=== PATIENT | female | born 1950 | race Caucasian/White ===

== ENCOUNTER 2021-02-02 08:09 | Outpatient (REF) | payer BC, SELFPAY ==
--- NOTE | ~2021-02-02 | MM_ITS ---
EXAMINATION: MM SCREENING DIGITAL BREAST TOMOSYNTHESIS, BILATERAL CLINICAL INFORMATION: Screening. Asymptomatic. The lifetime risk of breast cancer based on the Tyrer-Cuzick Model is 4%. COMPARISON: Mammography: 01/07/2019, 03/30/2015 TECHNIQUE: Digital breast tomosynthesis is performed in both the craniocaudal and mediolateral oblique views along with computer-aided detection (CAD). Synthesized 2D images are generated from the tomosynthesis. FINDINGS: There are scattered areas of fibroglandular density (ACR BI-RADS breast composition Category b). There are no significant masses, abnormal calcifications, or other abnormalities. Small intramammary node again demonstrated posterior 8:00 left breast. The axilla and skin contours are unremarkable. MM/MM tomosynthesis screening BI IMPRESSION: No mammographic evidence of malignancy. ASSESSMENT: BI-RADS 2: Benign RECOMMENDATION: Routine annual mammography screening. This patient's information was entered into a reminder system with a target due date for their next mammogram.
--- NOTE | ~2021-02-02 | MM_ITS ---
EXAMINATION: BONE DENSITOMETRY CLINICAL INDICATION: Other specified disorders of bone density and structure. COMPARISON: Previous BD dated 01/07/2019 and baseline BD dated 01/01/2008. TECHNIQUE: Using a [employer] DXA System (software version: 13.1) manufactured by [employer], dual-energy x-ray absorptiometry was performed of the lumbar spine and left hip. The images are of good technical quality. Summary results are attached. FINDINGS: AP SPINE L1-L4: Current: BMD 1.046 g/cm2, Z-score -0.5, T-score -1.1, osteopenia, 2.2% increase from previous, 3.8% decrease from baseline (<5% change is not significant). Prior: BMD 1.023 g/cm2. Baseline: BMD 1.087 g/cm2. LEFT FEMUR, NECK: Current: BMD 0.747 g/cm2, Z-score -1.1, T-score -2.1, osteopenia. Prior: BMD 0.800 g/cm2. Baseline: BMD 0.850 g/cm2. LEFT FEMUR, TOTAL: Current: BMD 0.762 g/cm2, Z-score -1.3, T-score -2.0, osteopenia, 4.3% decrease from previous, 13.0% decrease from baseline (<5% change is not significant). Prior: BMD 0.796 g/cm2. Baseline: BMD 0.876 g/cm2. IDENTIFIED RISK FACTORS: Height loss, menopause. HISTORY OF FRACTURE: None listed. MEDICATIONS: Calcium supplements or multivitamin, vitamin D. MM/XR DEXA axial skeleton IMPRESSION: 1. DIAGNOSIS: Osteopenia based on the lowest T-score value of -2.1 in the femoral neck applying World Health Organization criteria. 2. 10-YEAR FRACTURE RISK PREDICTION, FRAX: Major osteoporotic fracture (clinical spine, forearm, hip or shoulder) 11.0%. Hip fracture 1.9%. 3. Treatment Recommendations: NOF guidelines recommend consideration for treatment in postmenopausal women and men age 50 and older presenting with the following: -A hip or vertebral (clinical or morphometric) fracture. -T-score less than or equal to -2.5 at the femoral neck or spine after appropriate evaluation to exclude secondary causes. -Low bone mass at the hip or spine and a 10-year fracture probability by FRAX of greater than or equal to 3% for hip fracture or greater than or equal to 20% for major osteoporotic fracture based on the [place] adapted WHO algorithm. 4. Other Recommendations: All treatment decisions require clinical judgment and consideration of individual patient factors, including patient preferences, comorbidities, previous drug use, risk factors not captured in the FRAX model (e.g. frailty, falls, vitamin D deficiency, increased bone turnover, interval significant decline in bone density) and possible under or overestimation of fracture risk by FRAX. Additional medical evaluation for secondary cause of low bone mineral density may be appropriate. FUTURE SCAN RECOMMENDATION: People with diagnosed cases of osteoporosis or at high risk for fracture should have regular bone mineral density tests. For patients eligible for Medicare, routine testing is allowed once every 2 years. The testing frequency can be increased to one year for patients who have rapidly progressing disease, those who are receiving or discontinuing medical therapy to restore bone mass, or have additional risk factors.
== END 2021-02-02 08:10 | disposition home or self-care (01) ==
LOC: HO.MAMMO 08:09
PROVIDERS: Visit Provider Nurse Practitioner Family
DX: Z12.31 Encounter for screening mammogram for malignant neoplasm of breast (principal); Z13.820 Encounter for screening for osteoporosis; M85.80 Other specified disorders of bone density and structure, unspecified site; Z78.0 Asymptomatic menopausal state; Z79.899 Other long term (current) drug therapy
CPT/HCPCS: 77063; 77067; 77080

== ENCOUNTER 2021-02-14 08:59 | Day surgery (SDC) | payer BC, SELFPAY ==
[2021-02-08 10:57] VITALS: BMI 36.9
--- NOTE | 2021-02-09 12:14 | HO.ANESPROP2 ---
HPI - Anesthesia Eval Consult details Narrative: 70yo F for Colonoscopy PMFSH Active Problems Active Problems: All Active Problems (Updated 02/08/21 @ 11:06 by Rody Gupta) Screening for breast cancer (Acute) Screening for colon cancer (Acute) Physical exam (Acute) Cerumen impaction (Acute) Osteopenia (Acute) Past Medical History Medical History (Updated 02/08/21 @ 11:06 by Rody Gupta) Asthma COVID-19 vaccine administered Depression Elevated cholesterol History of urinary urgency HTN (hypertension) Hx of cardiac murmur Surgical History Surgical History H/O colonoscopy History of pubovaginal sling Hx of dilation and curettage Hx of tubal ligation Social History Social History Household Members: Family Housing: House Are you a primary primary care md to a significant other at home: No Do you presently have visiting nurse or other home services: No Patient Tobacco Use Status: Never used Tobacco Use of substances other than those prescribed or required for medical reasons: No Have you been hit, kicked, punched, or otherwise hurt by someone within the past year? If so, by whom?: No Are you DNR?: No Advance Directives Information Provided: No Recently lost weight without trying: No Eating poorly because of decreased appetite: No Nutrition Risks: No Nutritional Risk Poor oral hygiene: No (has one broken crown) Meds Allergies Allergy/AdvReac Type Severity Reaction Status Date / Time atorvastatin [ATORVASTATIN] AdvReac Intermediate myalgias / Verified 02/14/21 09:24 cough Exam Exam Date and Time: February 09, 2021 1214 Height,Weight and Vital Signs: Height 5 ft 3.5 in Weight 96.162 kg Narrative Narrative: echo 2018-mild mitral regurgitation-trace aortic & tricuspid regurgitation-no aortic valve stenosis Assessment and Plan Assessment Anesthesia Assessment: Chart Reviewed
[2021-02-14 09:13] VITALS: BP 152/65; PULSE 91; RESP 16; TEMP 36.3; O2SAT 96
--- NOTE | 2021-02-14 09:13 | HO.ANESPROP2 ---
[facility] Active Problems Active Problems: All Active Problems (Updated 02/08/21 @ 11:06 by Rody Gupta) Screening for breast cancer (Acute) Screening for colon cancer (Acute) Physical exam (Acute) Cerumen impaction (Acute) Osteopenia (Acute) Past Medical History Medical History (Updated 02/08/21 @ 11:06 by Rody Gupta) Asthma COVID-19 vaccine administered Depression Elevated cholesterol History of urinary urgency HTN (hypertension) Hx of cardiac murmur Surgical History Surgical History H/O colonoscopy History of pubovaginal sling Hx of dilation and curettage Hx of tubal ligation Social History Social History Household Members: Family Housing: House Are you a primary rn progressive care unit to a significant other at home: No Do you presently have visiting nurse or other home services: No Patient Tobacco Use Status: Never used Tobacco Use of substances other than those prescribed or required for medical reasons: No Have you been hit, kicked, punched, or otherwise hurt by someone within the past year? If so, by whom?: No Are you DNR?: No Advance Directives Information Provided: No Recently lost weight without trying: No Eating poorly because of decreased appetite: No Nutrition Risks: No Nutritional Risk Poor oral hygiene: No (has one broken crown) Meds Allergies Allergy/AdvReac Type Severity Reaction Status Date / Time atorvastatin [ATORVASTATIN] AdvReac Intermediate myalgias / Unverified 02/07/21 13:29 cough Active Medications: Current Medications Generic Name Dose Route Start Last Admin Trade Name Freq PRN Reason Stop Dose Admin Albuterol Sulfate 2.5 mg 02/14/21 09:12 Albuterol Sulfate (0.083%) 2.5 Mg/3 Ml Vial.Neb INHALE ONCE PRN Shortness of Breath/Wheezing Lactated Ringer's 1,000 mls @ 100 mls/hr 02/14/21 09:15 Lr IVCONT .Q10H SANTA Exam Exam Date and Time: February 14, 2021 0913 Height,Weight and Vital Signs: Height 5 ft 3.5 in Weight 96.162 kg Airway Mallampati Class: III TM Dist: >3cm Neck ROM: Full Heart: RRR Lungs: CYA
--- NOTE | 2021-02-14 09:14 | MHC.SHP ---
Pre-Procedural Eval Section A The patient is an INPATIENT: No The History & Physical has been completed within 30 days and I have reviewed it.: No Section B Chief Complaint: screening Allergies: Allergies Allergy/AdvReac Type Severity Reaction Status Date / Time atorvastatin [ATORVASTATIN] AdvReac Intermediate myalgias / Unverified 02/07/21 13:29 cough Plan I have reviewed the history and physical and performed a pertinent physical examination on my patient. No changes have occurred unless specified.
[2021-02-14] MEDS: Lactated Ringers 1,000 ML 100 ML IVCONT (09:25)
[2021-02-14 09:54] VITALS: BP 115/52; PULSE 86; RESP 16; TEMP 36.8; O2SAT 95
--- NOTE | 2021-02-14 09:55 | PM.OP ---
Brief Operative Note Date of Service: 02/14/21 Pre-op diagnosis: screening Post-op diagnosis: same (colon polyps) Procedure: colonoscopy Surgeon: Deion Leal Anesthesia: MAC Was an Flying Instructor used for this Procedure?: No Estimated blood loss (mL): 5 Pathology: other (polyps x2) Condition: stable Disposition: PACU
[2021-02-14 10:09] VITALS: BP 143/70; PULSE 85; RESP 18; TEMP 36.8; O2SAT 96
--- NOTE | 2021-02-14 20:39 | OP_ITS ---
SURGEON: Deion Leal MD INDICATIONS: Personal history of tubular adenomas and family history of colon cancer. PREOPERATIVE DIAGNOSIS: POSTOPERATIVE DIAGNOSIS: PROCEDURE PERFORMED: Colonoscopy to the terminal ileum with biopsy. ESTIMATED BLOOD LOSS: COMPLICATIONS: ANESTHESIA: ASSISTANTS: SPECIMENS: MEDICATIONS: Monitored anesthesia care. DESCRIPTION OF PROCEDURE: History and physical performed. The risks and benefits of the procedure were explained to the patient. Informed consent was obtained. The patient was placed in the left lateral decubitus position. A digital rectal exam was performed and was found to be normal. The Olympus pediatric video colonoscope was introduced into the rectum and advanced to the cecum without difficulty. The cecum was identified by transillumination, palpation, and identification of ileocecal valve. Examination was performed and the scope was removed. She tolerated the procedure well and was taken to recovery area in stable condition. FINDINGS: The terminal ileum was examined and appeared normal. The visualized colonic mucosa was normal. Two less than 5 mm polyps were removed, one was located in the cecum and the second was located at the ileocecal valve. No other polyps were identified. The quality of the prep was good. There was mild sigmoid diverticulosis. Retroflexed examination showed small internal hemorrhoids. IMPRESSION: Colon polyps. RECOMMENDATION: Follow up the biopsy results. MD GM Rock/ZACHL / [id number]
== END 2021-02-14 10:42 | disposition home or self-care (01) ==
PROVIDERS: PCP Nurse Practitioner Family; Visit Provider Internal Medicine Gastroenterology
PROC: 0DJD8ZZ Inspection of Lower Intestinal Tract, Via Natural or Artificial Opening Endoscopic (ICD-10-PCS; CPT 45378; principal; 2021-02-14 09:50)
DX: Z12.11 Encounter for screening for malignant neoplasm of colon (principal); Z80.0 Family history of malignant neoplasm of digestive organs; Z86.010 Personal history of colon polyps; D12.0 Benign neoplasm of cecum; K57.30 Diverticulosis of large intestine without perforation or abscess without bleeding; K64.8 Other hemorrhoids; I10 Essential (primary) hypertension; J45.909 Unspecified asthma, uncomplicated; Z79.899 Other long term (current) drug therapy; Z88.8 Allergy status to other drugs, medicaments and biological substances
CPT/HCPCS: 45380; 88305

== ENCOUNTER 2021-03-22 08:33 | Outpatient (REF) | payer BC, SELFPAY ==
[2021-03-22 11:25] LABS: MANUAL DIFF FLAG NO
[2021-03-22 12:04] LABS: Basophils Absolute Auto 0.1 X10*3/uL (0.0-0.2); Basophils Percent Auto 1.7 % (0-2); Eosinophils Absolute Auto 0.1 X10*3/uL (0.0-0.4); Eosinophils Percent Auto 2.4 % (0-4); Hematocrit 40.6 % (37-47); Hemoglobin 13.1 g/dl (12.0-16.0); Imm Gran Abs Auto 0.01 X10*3/uL (0.00-0.03); Imm Gran Pct Auto 0.2 % (0.0-0.4); Lymphocytes Absolute Auto 1.7 X10*3/uL (1.2-4.9); Lymphocytes Percent Auto 29.7 % (20-40); Mean Corpuscular HGB Conc 32.3 g/dl (31.0-35.0); Mean Corpuscular Hemoglobin 28.9 pg (27.0-33.0); Mean Corpuscular Volume 89.4 fL (80-98); Mean Platelet Volume 10.4 fL (9.4-12.3); Monocytes Absolute Auto 0.4 X10*3/uL (0.1-1.2); Monocytes Percent Auto 7.6 % (2-11); Neutrophils Absolute Auto 3.4 X10*3/uL (2.0-8.3); Neutrophils Percent Auto 58.4 % (45-73); Platelet Count 232 X10*3/uL (160-400); Red Blood Count 4.54 X10*6/uL (4.20-5.50); Red Cell Distribution Width 12.2 % (11.0-16.0); White Blood Count 5.8 X10*3/uL (4.8-10.8)
[2021-03-22 12:12] LABS: Alanine Aminotransferase 25 U/L (0-31); Albumin Level 4.1 g/dL (3.5-5.0); Alkaline Phosphatase 93 U/L (39-117); Anion Gap 14 (12-20); Aspartate Amino Transferase 30 U/L (5-31); Bilirubin Total 0.7 mg/dL (0.0-1.0); Blood Urea Nitrogen 19 mg/dL (9-16); Calcium 9.4 mg/dL (8.4-10.2); Carbon Dioxide 27 mmol/L (22-29); Chloride 102 mmol/L (96-108); Cholesterol 255 mg/dL; Estimated Glomerular Filt Rate > 60; Glucose Fasting 98 mg/dL (60-99); HDL Cholesterol 58 mg/dL; LDL Cholesterol Calculated 170 mg/dl; Potassium 4.4 mmol/L (3.3-5.1); Sodium 139 mmol/L (135-145); Total Protein 7.4 g/dL (6.5-8.0); Triglycerides 138 mg/dL
[2021-03-22 12:39] LABS: Ferritin 115 ng/mL (10-250); TSH reflex Free T4 1.87 uIU/mL (0.32-4.0); Vitamin D 25-OH Total 34.6 ng/mL (>30)
== END 2021-03-22 08:34 | disposition home or self-care (01) ==
LOC: HO.HMGCLDS 08:33
PROVIDERS: PCP Nurse Practitioner Family; Visit Provider Nurse Practitioner Family
DX: Z00.00 Encounter for general adult medical examination without abnormal findings (principal); R25.2 Cramp and spasm
CPT/HCPCS: 36415; 80053; 80061; 82306; 82728; 83735; 84443; 85025

== ENCOUNTER 2021-07-07 08:52 | Outpatient (REF) | payer BC, SELFPAY ==
[2021-07-07 11:58] LABS: Alanine Aminotransferase 18 U/L (0-31); Albumin Level 4.1 g/dL (3.5-5.0); Alkaline Phosphatase 80 U/L (39-117); Anion Gap 10 (12-20); Aspartate Amino Transferase 25 U/L (5-31); Bilirubin Total 0.5 mg/dL (0.0-1.0); Blood Urea Nitrogen 21 mg/dL (9-16); Calcium 9.6 mg/dL (8.4-10.2); Carbon Dioxide 29 mmol/L (22-29); Chloride 102 mmol/L (96-108); Cholesterol 217 mg/dL; Estimated Glomerular Filt Rate > 60; Glucose Fasting 95 mg/dL (60-99); HDL Cholesterol 59 mg/dL; LDL Cholesterol Calculated 135 mg/dl; Potassium 4.1 mmol/L (3.3-5.1); Sodium 137 mmol/L (135-145); Total Protein 7.4 g/dL (6.5-8.0); Triglycerides 119 mg/dL
[2021-07-07 12:13] LABS: TSH reflex Free T4 2.06 uIU/mL (0.32-4.0)
== END 2021-07-07 08:53 | disposition home or self-care (01) ==
LOC: HO.HMGCLDS 08:52
PROVIDERS: PCP Nurse Practitioner Family; Visit Provider Nurse Practitioner Family
DX: E78.00 Pure hypercholesterolemia, unspecified (principal); I10 Essential (primary) hypertension
CPT/HCPCS: 36415; 80053; 80061; 84443

== ENCOUNTER 2021-07-08 08:33 | Outpatient (REF) | payer BC, SELFPAY ==
[2021-07-08 11:18] LABS: Appearance Urine CLEAR; Color Urine YELLOW; Glucose Urine UA NEG (NEG); Leukocyte Esterase Urine TRACE (NEG); Nitrite Urine NEG (NEG); Specific Gravity - Urine 1.015 (1.005-1.025); UACC Culture Trigger YES; Urine Blood NEG (NEG); Urine Ketones NEG (NEG); Urine Protein NEG (NEG-TRACE)
[2021-07-08 11:43] LABS: WBC Urine 0-2 /HPF (0-4)
[2021-07-08 11:44] LABS: RBC Urine 0-2 /HPF (0); Squamous Epithelial Cell Urine TRACE /LPF
== END 2021-07-08 08:34 | disposition home or self-care (01) ==
LOC: HO.HMGCLDS 08:33
PROVIDERS: PCP Nurse Practitioner Family; Visit Provider Nurse Practitioner Family
DX: I10 Essential (primary) hypertension (principal)
CPT/HCPCS: 81001; 87086

== ENCOUNTER 2022-01-01 09:42 | Outpatient (REF) | payer BC, SELFPAY ==
[2022-01-01 11:21] LABS: Appearance Urine HAZY; Color Urine YELLOW; Glucose Urine UA NEG (NEG); Leukocyte Esterase Urine 2+ (NEG); Nitrite Urine NEG (NEG); UACC Culture Trigger YES; Urine Blood 1+ (NEG); Urine Ketones NEG (NEG); Urine Protein NEG (NEG-TRACE)
[2022-01-01 11:38] LABS: Mucus Urine 1+ /LPF; RBC Urine 0-2 /HPF (0); Renal Epithelial Cells Urine 1+ /LPF; Squamous Epithelial Cell Urine 1+ /LPF
[2022-01-01 11:51] LABS: Alanine Aminotransferase 25 U/L (0-31); Albumin Level 4.1 g/dL (3.5-5.0); Alkaline Phosphatase 75 U/L (39-117); Anion Gap 12 (12-20); Aspartate Amino Transferase 29 U/L (5-31); Bilirubin Total 0.5 mg/dL (0.0-1.0); Blood Urea Nitrogen 19 mg/dL (9-16); Calcium 9.5 mg/dL (8.4-10.2); Carbon Dioxide 28 mmol/L (22-29); Chloride 102 mmol/L (96-108); Cholesterol 224 mg/dL; Estimated Glomerular Filt Rate > 60; Glucose Fasting 103 mg/dL (60-99); HDL Cholesterol 64 mg/dL; LDL Cholesterol Calculated 143 mg/dl; Potassium 4.5 mmol/L (3.3-5.1); Sodium 137 mmol/L (135-145); Total Protein 7.4 g/dL (6.5-8.0); Triglycerides 87 mg/dL
[2022-01-01 11:59] LABS: TSH reflex Free T4 2.24 uIU/mL (0.32-4.0); Vitamin D 25-OH Total 39.6 ng/mL (>30)
== END 2022-01-01 09:43 | disposition home or self-care (01) ==
LOC: HO.HMGCLDS 09:42
PROVIDERS: Visit Provider Nurse Practitioner Family
DX: Z00.00 Encounter for general adult medical examination without abnormal findings (principal); M85.80 Other specified disorders of bone density and structure, unspecified site
CPT/HCPCS: 36415; 80053; 80061; 81001; 82306; 84443; 87086

== ENCOUNTER 2022-02-06 08:35 | Outpatient (REF) | payer BC, SELFPAY ==
--- NOTE | ~2022-02-06 | MM_ITS ---
EXAMINATION: MM SCREENING DIGITAL BREAST TOMOSYNTHESIS, BILATERAL CLINICAL INFORMATION: Screening. Asymptomatic. The lifetime risk of breast cancer based on the Tyrer-Cuzick Model is 4%. COMPARISON: Mammography: 02/02/2021, 01/07/2019, 03/30/2015 TECHNIQUE: Digital breast tomosynthesis is performed in both the craniocaudal and mediolateral oblique views along with computer-aided detection (CAD). Synthesized 2D images are generated from the tomosynthesis. FINDINGS: There are scattered areas of fibroglandular density (ACR BI-RADS breast composition Category b). There are no significant masses, abnormal calcifications, or other abnormalities. No developing density. Small intramammary node again seen posterior central 8:00 left breast. Skin contours are smooth. MM/MM tomosynthesis screening BI IMPRESSION: No mammographic evidence of malignancy. ASSESSMENT: BI-RADS 2: Benign RECOMMENDATION: Routine annual mammography screening. This patient's information was entered into a reminder system with a target due date for their next mammogram.
== END 2022-02-06 08:36 | disposition home or self-care (01) ==
LOC: HO.MAMMO 08:35
PROVIDERS: PCP Nurse Practitioner Family; Visit Provider Nurse Practitioner Family
DX: Z12.31 Encounter for screening mammogram for malignant neoplasm of breast (principal)
CPT/HCPCS: 77063; 77067

== ENCOUNTER 2022-12-14 09:20 | Outpatient (REF) | payer BC, SELFPAY ==
--- NOTE | ~2022-12-14 | XR_ITS ---
EXAMINATION: XR KNEE, RIGHT CLINICAL INFORMATION: Right knee pain. COMPARISON: None available. TECHNIQUE: Four views of the right knee. FINDINGS: Mild medial femoral-tibial and patellofemoral joint space narrowing is seen. There is no acute fracture or dislocation. There is no joint effusion. Mild soft tissue swelling is seen. XR/XR knee RT 4V IMPRESSION: Mild degenerative joint changes most consistent with osteoarthritis. Mild soft tissue swelling. No acute fracture.
[2022-12-14 11:40] LABS: MANUAL DIFF FLAG NO
[2022-12-14 11:45] LABS: Appearance Urine Clear; Color Urine Yellow; Glucose Urine UA Negative (Negative); Leukocyte Esterase Urine Moderate (2+) (Negative); Nitrite Urine Negative (Negative); UMIC TRIGGER UACC YES; Urine Blood Trace (Negative); Urine Ketones Negative (Negative); Urine Protein Negative (Neg-Trace)
[2022-12-14 11:54] LABS: Basophils Absolute Auto 0.1 X10*3/uL (0.0-0.2); Basophils Percent Auto 1.8 % (0-2); Eosinophils Absolute Auto 0.2 X10*3/uL (0.0-0.4); Eosinophils Percent Auto 2.8 % (0-4); Hematocrit 41.4 % (37.0-47.0); Hemoglobin 13.5 g/dl (12.0-16.0); Imm Gran Abs Auto 0.02 X10*3/uL (0.00-0.03); Imm Gran Pct Auto 0.3 % (0.0-0.4); Lymphocytes Absolute Auto 1.8 X10*3/uL (1.2-4.9); Lymphocytes Percent Auto 30.6 % (20-40); Mean Corpuscular HGB Conc 32.6 g/dl (31.0-35.0); Mean Corpuscular Hemoglobin 28.4 pg (27.0-33.0); Mean Platelet Volume 10.3 fL (9.4-12.3); Monocytes Absolute Auto 0.5 X10*3/uL (0.1-1.2); Monocytes Percent Auto 7.5 % (2-11); Neutrophils Absolute Auto 3.4 x10*3/uL (2.0-8.3); Platelet Count 254 X10*3/uL (160-400); Red Blood Count 4.76 X10*6/uL (4.20-5.50); Red Cell Distribution Width 12.1 % (11.0-16.0)
[2022-12-14 12:02] LABS: Bacteria Urine None Seen (None Seen); Hyaline Casts Urine 0-2 /LPF (0-2); RBC Urine 0-2 /HPF (0-2); Squamous Epithelial Cell Urine 0-2 /HPF (0-2); WBC Urine 0-5 /HPF (0-5)
[2022-12-14 12:30] LABS: Alanine Aminotransferase 29 U/L (0-31); Albumin Level 4.2 g/dL (3.5-5.0); Alkaline Phosphatase 83 U/L (39-117); Anion Gap 12 (12-20); Aspartate Amino Transferase 35 U/L (5-31); Bilirubin Total 0.7 mg/dL (0.0-1.0); Blood Urea Nitrogen 22 mg/dL (9-16); C Reactive Protein 0.31 mg/dL (< or = 0.50); Calcium 9.2 mg/dL (8.4-10.2); Carbon Dioxide 27 mmol/L (22-29); Chloride 102 mmol/L (96-108); Cholesterol 229 mg/dL; Estimated Glomerular Filt Rate > 60; Glucose Fasting 99 mg/dL (60-99); HDL Cholesterol 65 mg/dL; LDL Cholesterol Calculated 135 mg/dl; Magnesium 1.9 mg/dL (1.6-2.6); Potassium 4.2 mmol/L (3.3-5.1); Sodium 137 mmol/L (135-145); Total Protein 7.5 g/dL (6.5-8.0); Triglycerides 148 mg/dL
[2022-12-14 12:38] LABS: Erythrocyte Sedimentation Rate 21 MM/HR (0-20)
[2022-12-14 13:15] LABS: Folate > 20.0 ng/mL (> or = 4.0); TSH reflex Free T4 2.61 uIU/mL (0.32-4.0); Vitamin B12 894 pg/mL (200-900)
[2022-12-20 15:04] LABS: Vitamin B6 57.6 ng/mL (2.1-21.7)
[2022-12-21 22:29] LABS: CK-BB None Detected (None Detected); CK-MB 0 % (<5); CK-MM 100 % (95-100); Creatine Kinase,Total,Serum 74 U/L (29-143)
== END 2022-12-14 09:21 | disposition home or self-care (01) ==
LOC: HO.HMGCX 09:20
PROVIDERS: PCP Nurse Practitioner Family; Visit Provider Nurse Practitioner Family
DX: Z00.00 Encounter for general adult medical examination without abnormal findings (principal); R25.2 Cramp and spasm; M25.561 Pain in right knee; E78.5 Hyperlipidemia, unspecified
CPT/HCPCS: 36415; 73564; 80053; 80061; 81001; 82552; 82607; 82746; 83735; 84207; 84443; 85025; 85652; 86140

== ENCOUNTER 2023-02-12 08:28 | Outpatient (REF) | payer BC, SELFPAY ==
--- NOTE | ~2023-02-12 | MM_ITS ---
EXAMINATION: MM SCREENING DIGITAL BREAST TOMOSYNTHESIS, BILATERAL CLINICAL INFORMATION: Screening. Asymptomatic. The lifetime risk of breast cancer based on the Tyrer-Cuzick Model is 4%. COMPARISON: Mammography: 02/06/2022, 02/02/2021, 01/07/2019 TECHNIQUE: Digital breast tomosynthesis is performed in both the craniocaudal and mediolateral oblique views along with computer-aided detection (CAD). Synthesized 2D images are generated from the tomosynthesis. Additional right MLO view is provided. FINDINGS: There are scattered areas of fibroglandular density (ACR BI-RADS breast composition Category b). There are no significant masses, abnormal calcifications, or other abnormalities. Parenchymal pattern is similar to prior studies. There is no developing density or architectural abnormality. Incidental intramammary node again demonstrated posterior medial left breast. There are scattered bilateral benign vascular calcifications. The axilla are unremarkable. MM/MM tomosynthesis screening BI IMPRESSION: No mammographic evidence of malignancy. ASSESSMENT: BI-RADS 2: Benign RECOMMENDATION: Routine annual mammography screening. This patient's information was entered into a reminder system with a target due date for their next mammogram.
== END 2023-02-12 08:29 | disposition home or self-care (01) ==
LOC: HO.MAMMO 08:28
PROVIDERS: PCP Nurse Practitioner Family; Visit Provider Nurse Practitioner Family
DX: Z12.31 Encounter for screening mammogram for malignant neoplasm of breast (principal)
CPT/HCPCS: 77063; 77067

== ENCOUNTER 2023-02-21 09:13 | Outpatient (REF) | payer BC, SELFPAY ==
--- NOTE | ~2023-02-21 | MM_ITS ---
EXAMINATION: BONE DENSITOMETRY CLINICAL INDICATION: Other specified disorders of bone density and structure, unspecified. COMPARISON: Previous BD dated 02/02/2021 and baseline BD dated 01/01/2008. TECHNIQUE: Using a [employer] DXA System (software version: 13.1) manufactured by [employer], dual-energy x-ray absorptiometry was performed of the lumbar spine and left hip. The images are of good technical quality. Summary results are attached. FINDINGS: AP SPINE L1-L4: Current: BMD 1.072 g/cm2, Z-score -0.4, T-score -0.9, normal, 2.5% increase from previous, 1.4% decrease from baseline (<5% change is not significant). Prior: BMD 1.046 g/cm2. Baseline: BMD 1.087 g/cm2. LEFT FEMUR, NECK: Current: BMD 0.745 g/cm2, Z-score -1.2, T-score -2.1, osteopenia. Prior: BMD 0.747 g/cm2. Baseline: BMD 0.850 g/cm2. LEFT FEMUR, TOTAL: Current: BMD 0.799 g/cm2, Z-score -1.0, T-score -1.7, osteopenia, 4.9% increase from previous, 8.8% decrease from baseline (<5% change is not significant). Prior: BMD 0.762 g/cm2. Baseline: BMD 0.876 g/cm2. IDENTIFIED RISK FACTORS: Menopause, thiazide. HISTORY OF FRACTURE: None listed. MEDICATIONS: Calcium supplements or multivitamin, vitamin D. MM/XR DEXA axial skeleton IMPRESSION: 1. DIAGNOSIS: Osteopenia based on the lowest T-score value of -2.1 in the femoral neck applying World Health Organization criteria. 2. 10-YEAR FRACTURE RISK PREDICTION, FRAX: Major osteoporotic fracture (clinical spine, forearm, hip or shoulder) 11.2%. Hip fracture 2.2%. 3. Treatment Recommendations: NOF guidelines recommend consideration for treatment in postmenopausal women and men age 50 and older presenting with the following: -A hip or vertebral (clinical or morphometric) fracture. -T-score less than or equal to -2.5 at the femoral neck or spine after appropriate evaluation to exclude secondary causes. -Low bone mass at the hip or spine and a 10-year fracture probability by FRAX of greater than or equal to 3% for hip fracture or greater than or equal to 20% for major osteoporotic fracture based on the [place] adapted WHO algorithm. 4. Other Recommendations: All treatment decisions require clinical judgment and consideration of individual patient factors, including patient preferences, comorbidities, previous drug use, risk factors not captured in the FRAX model (e.g. frailty, falls, vitamin D deficiency, increased bone turnover, interval significant decline in bone density) and possible under or overestimation of fracture risk by FRAX. Additional medical evaluation for secondary cause of low bone mineral density may be appropriate. FUTURE SCAN RECOMMENDATION: People with diagnosed cases of osteoporosis or at high risk for fracture should have regular bone mineral density tests. For patients eligible for Medicare, routine testing is allowed once every 2 years. The testing frequency can be increased to one year for patients who have rapidly progressing disease, those who are receiving or discontinuing medical therapy to restore bone mass, or have additional risk factors.
== END 2023-02-21 09:14 | disposition home or self-care (01) ==
LOC: HO.MAMMO 09:13
PROVIDERS: PCP Nurse Practitioner Family; Visit Provider Nurse Practitioner Family
DX: Z13.820 Encounter for screening for osteoporosis (principal); Z78.0 Asymptomatic menopausal state; M85.80 Other specified disorders of bone density and structure, unspecified site
CPT/HCPCS: 77080

== ENCOUNTER 2023-10-28 09:37 | Outpatient (AMB) | payer MEDICARE, SELFPAY ==
[2023-10-28 09:45] VITALS: BP 158/80; PULSE 87; TEMP 36.4; O2SAT 97; BMI 36.8
--- NOTE | 2023-10-28 09:45 | AM.OFFWIN_ITS ---
Intake Vital Signs 10/28/23 09:45 Height 5 ft 3.5 in Weight 211 lb BMI 36.8 BP 158/80 H Blood Pressure Location Lt brachial Position Sitting Pulse 87 Pulse Source Pulse Oximeter Temp 97.5 F Temp Source Temporal Artery Scan Pulse Oximetry (%) 97 Oxygen Delivery Method Room Air Intake Visit Reasons: EP Cough, Diarrhea (masked) Intake Note: pt is here today for cough diarrhea started 1 week ago Patient Tobacco Use Status: Never used Tobacco Allergies atorvastatin [ATORVASTATIN] Adverse Reaction (Intermediate, Verified 10/28/23 10:29) myalgias / cough Medication List - Last Reconciled 10/28/23 by Ernesto Vazquez MD ezetimibe 10 mg PO DAILY 90 days eudtbyczyd-qmzowgoru-[id number] 40-5-12.5 mg 1 tab PO DAILY Do you need a note to return to daycare/school/sports/work: No HPI EP Cough, Diarrhea (masked) HPI Details Patient presents for a sick visit. Reporting symptoms of sinus congestion, sore throat and difficulty swallowing. Low-grade fever. No family member is sick. No recent travel. Patient reports symptoms of malaise and fatigue. [facility] Medical History COVID-19 vaccine administered History of urinary urgency Depression Asthma Hx of cardiac murmur Elevated cholesterol HTN (hypertension) Surgical History H/O colonoscopy History of pubovaginal sling Hx of dilation and curettage Hx of tubal ligation Social History Household Members: Family Housing: House Are you a primary career services manager to a significant other at home: No Do you presently have visiting nurse or other home services: No Patient Tobacco Use Status: Never used Tobacco e-Cigarette/Vaping Use: Never Used Second Hand Smoke Exposure: Yes service: No Current occupational status: retired Cognitive needs: No Hearing needs: No Vision needs: No Physical Exam Vital Signs: Last Vital Signs Temp 97.5 F 10/28/23 09:45 Pulse 87 10/28/23 09:45 BP 158/80 H 10/28/23 09:45 Pulse Ox 97 10/28/23 09:45 Oxygen Delivery Method Room Air 10/28/23 09:45 BMI result Body Mass Index 36.8 Const General: cooperative and healthy appearing Nutritional Appearance: well nourished Orientation/consciousness: patient oriented x3 Limitations: no limitations HEENT Head: Yes normal to inspection Eyes General: appearance normal, both eyes and all related structures Neck Neck: Yes normal visual inspection Chest Chest palpation & inspection: normal palpation of entire chest wall Resp Effort & Inspection: normal respiratory effort Neuro General: patient oriented x3 Assessment & Plan Assessment & Plan (1) Upper respiratory tract infection: Code(s): J06.9 - Acute upper respiratory infection, unspecified Plan: Antibiotics ordered. Increase fluid intake. Tylenol for aches and pains. If symptoms worsen, follow-up here for a recheck. Orders: Orders XR chest 2V Today R05.9 - Cough, unspecified Coding Level of Care Code Est Pt Level 3 (30090) Diagnoses Upper respiratory tract infection J06.9
== END 2023-10-28 11:00 | disposition home or self-care (01) ==
PROVIDERS: PCP Nurse Practitioner Family; Visit Provider Internal Medicine
DX: J06.9 Acute upper respiratory infection, unspecified (principal)
CPT/HCPCS: 99213

== ENCOUNTER 2023-10-28 10:14 | Outpatient (REF) | payer MEDICARE, SELFPAY ==
--- NOTE | ~2023-10-28 | XR_ITS ---
EXAMINATION: XR CHEST CLINICAL INFORMATION: Cough, unspecified COMPARISON: None available. TECHNIQUE: 2 views of the chest were obtained. FINDINGS: No significant abnormality is noted involving the heart, lungs, mediastinum, bony thorax or soft tissues. XR/XR chest 2V IMPRESSION: Unremarkable examination.
== END 2023-10-28 10:15 | disposition home or self-care (01) ==
LOC: HO.HMGCX 10:14
PROVIDERS: PCP Nurse Practitioner Family; Visit Provider Internal Medicine
DX: R05.9 Cough, unspecified (principal)
CPT/HCPCS: 71046

== ENCOUNTER 2023-11-14 09:32 | Outpatient (AMB) | payer MEDICARE, SELFPAY ==
--- NOTE | 2023-11-14 10:27 | AM.OFFWIN_ITS ---
Intake Vital Signs 11/14/23 10:29 Weight 207 lb BP 140/90 H Blood Pressure Location Lt brachial Position Sitting Pulse 135 H Pulse Source Pulse Oximeter Temp 98.3 F Temp Source Oral Pulse Oximetry (%) 92 Oxygen Delivery Method Room Air Intake Visit Reasons: EP Cough (masked) Intake Note: Patient here for bad cough and sob that started yesterday Patient Tobacco Use Status: Never used Tobacco Allergies atorvastatin [ATORVASTATIN] Adverse Reaction (Intermediate, Verified 11/14/23 10:30) myalgias / cough Do you need a note to return to daycare/school/sports/work: No HPI HPI Comments History of Present Illness Details 73 y/o male patient who presents to walk in clinic with c/o cough and wheezing. Pt was seen at [facility] 2 weeks for similar symptoms and she was given Zpack, Prednisone and Albuterol inhaler. Chest Xray was negative then. [facility] Medical History COVID-19 vaccine administered History of urinary urgency Depression Asthma Hx of cardiac murmur Elevated cholesterol HTN (hypertension) Surgical History H/O colonoscopy History of pubovaginal sling Hx of dilation and curettage Hx of tubal ligation Social History Household Members: Family Housing: House Are you a primary field care manager to a significant other at home: No Do you presently have visiting nurse or other home services: No Patient Tobacco Use Status: Never used Tobacco e-Cigarette/Vaping Use: Never Used Second Hand Smoke Exposure: Yes service: No Current occupational status: retired Cognitive needs: No Hearing needs: No Vision needs: No Review of Systems Const All systems reviewed & are unremarkable except as noted in HPI and below Physical Exam Vital Signs: Last Vital Signs Temp 98.3 F 11/14/23 10:29 Pulse 135 H 11/14/23 10:29 BP 140/90 H 11/14/23 10:29 Pulse Ox 92 11/14/23 10:29 Oxygen Delivery Method Room Air 11/14/23 10:29 Const General: comfortable and no acute distress Orientation/consciousness: patient oriented x3 HEENT Head: Yes normocephalic Ears: external ears normal and TM's normal bilaterally General nose exam: Normal nasal mucous membranes and turbinates present Face and sinus: Yes sinuses nontender Mouth: moist mucous membranes Throat: Yes postnasal drainage Resp Effort & Inspection: normal respiratory effort, able to speak in complete sentences and Actively coughing Auscultation: no crackles, no rales, no rhonchi and wheezes inspiratory wheezes, left lower and left upper Cardio Rate: regular rate Rhythm: regular rhythm Neuro General: patient oriented x3 Assessment & Plan Assessment & Plan (1) Upper respiratory tract infection: Code(s): J06.9 - Acute upper respiratory infection, unspecified Qualifiers: URI type: unspecified URI Qualified Code(s): J06.9 - Acute upper respiratory infection, unspecified Plan: - Rest and hydrate well. - Take medicine as prescribed. (2) Cough in adult: Code(s): R05.9 - Cough, unspecified Plan: - Rest and hydrate well. - Take medicine as prescribed. Plan - Rest and hydrate well. - Take medicine as prescribed. Orders: Orders SARS-CoV2/FLU/RSV Today R09.89 - Other specified symptoms and signs involving the circulatory and respiratory systems Medications: New benzonatate 100 mg PO TID 60 caps 0RF R05.9 - Cough, unspecified prednisone 50 mg PO DAILY 3 days 3 tabs 0RF WHEEZING J06.9 - Acute upper respiratory infection, unspecified, R05.9 - Cough, unspecified acetaminophen-codeine 120-12 mg/5 mL 5 mL PO Q8H 473 mL 0RF R05.9 - Cough, unspecified Coding Level of Care Code Est Pt Level 3 (92674) Diagnoses Upper respiratory tract infection, unspecified type J06.9 URI type: unspecified URI Cough in adult R05.9 Time Spent (min) 15
[2023-11-14 10:29] VITALS: BP 140/90; PULSE 135; TEMP 36.8; O2SAT 92
== END 2023-11-14 11:03 | disposition home or self-care (01) ==
PROVIDERS: PCP Nurse Practitioner Family; Visit Provider Nurse Practitioner Family
DX: J06.9 Acute upper respiratory infection, unspecified (principal); R05.9 Cough, unspecified
CPT/HCPCS: 99213

== ENCOUNTER 2023-11-14 11:01 | Outpatient (REF) | payer MEDICARE, SELFPAY ==
[2023-11-14 16:45] LABS: Influenza A PCR NEGATIVE (Negative); Influenza B PCR NEGATIVE (Negative); Resp Syncy Virus RNA Qual PCR NEGATIVE (Negative); SARS COV2 PCR INHOUSE NEGATIVE (Negative)
== END 2023-11-14 11:02 | disposition home or self-care (01) ==
LOC: HO.LAB 11:01
PROVIDERS: Visit Provider Nurse Practitioner Family
DX: R09.89 Other specified symptoms and signs involving the circulatory and respiratory systems (principal); Z11.52 Encounter for screening for COVID-19; Z20.828 Contact with and (suspected) exposure to other viral communicable diseases
CPT/HCPCS: 0241U

== ENCOUNTER 2023-12-03 08:08 | Outpatient (AMB) | payer MEDICARE, SELFPAY ==
--- NOTE | 2023-12-03 07:18 | MHC.PC.OV ---
Intake Visit Reasons: [place] F/U Results Allergies atorvastatin [ATORVASTATIN] Adverse Reaction (Intermediate, Verified 12/03/23 07:42) myalgias / cough Medication List - Last Reconciled 12/03/23 by AMRIA D Cross albuterol sulfate 90 mcg/actuation (Ventolin HFA) 1 inh inhalation QID PRN benzonatate 100 mg PO TID ezetimibe 10 mg PO DAILY 90 days rbteiazlhs-inpknatxo-wxrztiwxd 40-5-12.5 mg 1 tab PO DAILY Tobacco use date assessed: 02/19/23 HPI [place] F/U Results HPI Details Pt was seen in the walk-in on c/o cough and wheezing. She was seen 2 weeks prior with similar symptoms and given zpak, prednisone, and albuterol. Chest XR was negative. Pt was swabbed for COVID/flu/RSV and was negative. Sge sent benzonatate, prednisone, and tylenol with codeine. Pt reports ongoing cough and congestion, though she reports this is improving. encouraged her to continue to treat s/s, and expressed that she is most likely at the end of this viral course. [facility] Medical History COVID-19 vaccine administered History of urinary urgency Depression Asthma Hx of cardiac murmur Elevated cholesterol HTN (hypertension) Surgical History Hx of dilation and curettage Hx of tubal ligation History of pubovaginal sling H/O colonoscopy Social History Household Members: Family Housing: House Are you a primary care professional to a significant other at home: No Do you presently have visiting nurse or other home services: No Patient Tobacco Use Status: Never used Tobacco e-Cigarette/Vaping Use: Never Used Second Hand Smoke Exposure: Yes service: No Current occupational status: retired Cognitive needs: No Hearing needs: No Vision needs: No Questionnaire Thrive Questionnaire Date Thrive assessed: 02/19/23 KARTHIK-7 AMB Questionnaire KARTHIK-7 Date KARTHIK - 7 assessed: 02/19/23 Source: Developed by Drs. Farzad Gamboa, Zulema Gray, Fabricio Alexander and colleagues, with an educational dung from [employer]. Review of Systems Const Reports as per HPI Physical exam (Primary Care) Tobacco/Smoking Status: Tobacco use Status Tobacco use date assessed 02/19/23 12/03/23 07:19 Patient Tobacco Use Status Never used Tobacco 12/03/23 07:19 e-Cigarette/Vaping Use Never Used 12/03/23 07:19 Thrive Assessment: Date of Thrive Assessment Date Thrive assessed 02/19/23 12/03/23 07:19 Const General: cooperative Orientation/consciousness: patient oriented x3 Neuro General: patient oriented x3 Psych Mental Status: mental status grossly normal Speech and movement: Clear speech present Affect: normal affect Attitude: cooperative Thought process: Normal thought process present Thought content: Normal thought content present Insight: Good insight present (Psych) Judgement: Good judgement present (Psych) Telehealth Telehealth Location of provider rendering services: practice address Location of patient: address on file Patient Identification confirmed using: Name, : Yes Telehealth method: voice only Patient verbally consented to treatment: Yes Patient verbally consented to billing insurance company: Yes Patient informed of any privacy concerns related to visit: Yes Minutes spent on Phone/Video with Pt.: 10 Assessment and Plan Assessment & Plan (1) Viral illness: Code(s): B34.9 - Viral infection, unspecified Plan: cont to treat s/s of OTC remedies. Plan The patient agreed to the use of a medical insurance biller for this encounter. Scribed for MARIA D French by tamela Guerrero scribe, on 12/03/2023 at 07:20 EST. Coding Level of Care Code Tele Est Pt Level 3 (98993) Diagnoses Viral illness B34.9
== END 2023-12-03 08:24 | disposition home or self-care (01) ==
LOC: HO.HMGC 08:08
PROVIDERS: PCP Nurse Practitioner Family; Visit Provider Nurse Practitioner Family
DX: B34.9 Viral infection, unspecified (principal)
CPT/HCPCS: 99441

== ENCOUNTER 2024-03-02 09:57 | Outpatient (AMB) | payer MEDICARE, SELFPAY ==
--- NOTE | 2024-03-02 09:58 | A.OFFPC_ITS ---
Vital Signs 03/02/24 10:02 Height 5 ft 3.5 in Weight 199 lb BMI 34.7 BP 124/74 Blood Pressure Location Rt brachial Position Sitting Pulse 74 Pulse Source Pulse Oximeter Pulse Oximetry (%) 97 Oxygen Delivery Method Room Air Intake Visit Reasons: PE Intake Note: Pt is here for annual PE. Last mammogram 02/12/23. Last colon 02/14/21. Last bone density 02/21/23 Allergies atorvastatin [ATORVASTATIN] Adverse Reaction (Intermediate, Verified 03/02/24 10:15) myalgias / cough Medication List - Last Reconciled 03/02/24 by KHANH Seo albuterol sulfate 90 mcg/actuation (Ventolin HFA) 1 inh inhalation QID PRN ezetimibe 10 mg PO DAILY 90 days tmvaescbqb-hqjiymxfm-ajsuozojz 40-5-12.5 mg 1 tab PO DAILY Tobacco use date assessed: 03/02/24 Fall risk assessment: 1 Fall in past year Last assessed Fall Risk: 03/02/24 Dental Screening Dental Screen Date: 03/02/24 Did you have a dental visit in the last 12 months?: Yes Did you have a dental problem in the last 6 months where you did not have access to dental care?: No Was dental information given to patient?: Patient has dentist HPI HPI Comments History of Present Illness Details Patient is a 73-year-old female in today for physical exam Patient is due for mammogram. She is due for tetanus vaccine. Will offer today Recent colonoscopy was in 2020. Patient is up-to-date. Due in 2025. She is up-to-date with bone densitometry. PFSH Medical History COVID-19 vaccine administered History of urinary urgency Depression Asthma Hx of cardiac murmur Elevated cholesterol HTN (hypertension) Surgical History Hx of dilation and curettage Hx of tubal ligation History of pubovaginal sling H/O colonoscopy Social History Household Members: Family Housing: House Are you a primary assistant child care teacher to a significant other at home: No Do you presently have visiting nurse or other home services: No Patient Tobacco Use Status: Never used Tobacco e-Cigarette/Vaping Use: Never Used Second Hand Smoke Exposure: Yes service: No Current occupational status: retired Cognitive needs: No Hearing needs: No Vision needs: No Questionnaire PHQ-9 Over the last 2 weeks, how often have you been bothered by any of the following problems? 1. Little interest or pleasure in doing things: not at all 2. Feeling down, depressed, or hopeless: not at all 3. Trouble falling or staying asleep, or sleeping too much: not at all 4. Feeling tired or having little energy: not at all 5. Poor appetite or overeating: not at all 6. Feeling bad about yourself - or that you are a failure or have let yourself or your family down: not at all 7. Trouble concentrating on things, such as reading the newspaper or watching television: not at all 8. Moving or speaking so slowly that other people could have noticed. Or the opposite - being so fidgety or restless that you have been moving around a lot more than usual: not at all 9. Thoughts that you would be better off or of hurting yourself in some way: not at all Total score: 0 Depression Screening Interpretation: Negative Depression Screening Done: Yes 28605 - PHQ-9 Billing: Yes Source: Developed by Drs. Farzad Gamboa, Zulema Gray, Fabricio Alexander and colleagues, with an educational dung from [employer]. Thrive Questionnaire Date Thrive assessed: 03/02/24 I am a: Patient What is your living situation today?: I have a steady place to live Within the past 12 months, did the food you bought not last and you didn't have the money to get more?: Never true Within the past 12 months, did you worry whether your food would run out before you got money to buy more?: Never true Do you have trouble paying for medicines?: No Do you have trouble getting transportation to medical appointments?: No Do you have trouble paying your heating and electricity bill?: No Do you have trouble taking care of your child, family member or friend?: No Do you have trouble with day-to-day activities such as bathing, preparing meals, shopping, managing finances, etc.?: No Are you currently unemployed and looking for a job?: No Are you interested in more education?: No Please select the resources that you would like help with: None Currently or been in a relationship where the following occur: no concerns reported THRIVE Score: 0 AUDIT C Alcohol Use Questionnaire (AUDIT-C) 1. How often do you have a drink containing alcohol?: Monthly or less 2. How many drinks containing alcohol do you have on a typical day when you are drinking?: 1 or 2 3. How often do you have six or more drinks on one occasion?: Never Total Score: 1 Score Reviewed/Action Taken: Yes KARTHKI-7 AMB Questionnaire KARTHIK-7 Date KARTHIK - 7 assessed: 02/19/23 Source: Developed by Drs. Farzad Gamboa, Zulema Gray, Fabricio Alexander and colleagues, with an educational dung from [employer]. Review of Systems Const All systems reviewed & are unremarkable except as noted in HPI and below Physical exam (Primary Care) Care Plan Goal for BP management: Blood pressure is controlled. Tobacco/Smoking Status: Tobacco use Status Tobacco use date assessed 02/19/23 12/03/23 07:19 Patient Tobacco Use Status Never used Tobacco 12/03/23 07:19 e-Cigarette/Vaping Use Never Used 12/03/23 07:19 Depression Screening Interpretation: Negative Thrive Assessment: Date of Thrive Assessment Date Thrive assessed 02/19/23 12/03/23 07:19 Currently or been in a relationship where the following occur: no concerns reported Advance Care Planning discussion: Completed/Scanned Date of discussion: 03/02/24 Forms completed: Health Care Proxy and [facility] Time spent: 16-45 minutes Actual minutes spent: 18 Const Other: Appearance: Alert.? Oriented X3.? No acute distress.? Head: Normocephalic. Eyes: Pupils equal, round and reactive to light.?Sclera white. ENT: Pharynx normal.?TM intact and pearly yang. Neck: Normal inspection.? Neck supple.? CVS: Normal heart rate and rhythm.? Pulses normal.? Respiratory: No respiratory distress.? Breath sounds normal.? Abdomen: Soft and nontender.? Skin: Skin warm and dry.? Normal skin color.? Normal skin turgor.? Extremities: No lower extremity edema.? No calf ttp. 5/5 strength to bilateral upper and lower extremities Back: No midline tenderness, no C-spine tenderness, full range of motion, no CVA tenderness bilaterally Neuro: Oriented X 3.? No motor deficit.? No sensory deficit. CN 2-12 intact Assessment and Plan Assessment & Plan (1) Physical exam: Comment: Patient is a 73-year-old female in today for physical exam Patient is due for mammogram. She is due for tetanus vaccine. Will offer today Recent colonoscopy was in 2020. Patient is up-to-date. Due in 2025. She is up-to-date with bone densitometry. Code(s): Z00.00 - Encounter for general adult medical examination without abnormal findings (2) Osteopenia: Comment: Patient up-to-date with COVID insomnia. Utilizing calcium vitamin-D supplements. Will redraw labs today. Code(s): M85.80 - Other specified disorders of bone density and structure, unspecified site Qualifiers: Osteopenia location: unspecified Qualified Code(s): M85.80 - Other specified disorders of bone density and structure, unspecified site (3) HTN (hypertension): Comment: Controlled with combination pepmnbthhn-hvgfzhygpc-kgcogqaqoaaisapkkad tablet. Code(s): I10 - Essential (primary) hypertension Qualifiers: Hypertension type: unspecified Qualified Code(s): I10 - Essential (primary) hypertension Orders: Orders Vitamin B12 Today Z13.21 - Encounter for screening for nutritional disorder TSH reflex Free T4 Today Z13.29 - Encounter for screening for other suspected endocrine disorder Lipid Panel Today Z13.220 - Encounter for screening for lipoid disorders Comprehensive Met. Panel Today Z91.89 - Other specified personal risk factors, not elsewhere classified Hemoglobin A1c Today Z13.1 - Encounter for screening for diabetes mellitus TDaP Immunization Today Z23 - Encounter for immunization Vitamin D 25-OH (D2 and D3) Today Z13.21 - Encounter for screening for nutritional disorder Vitamin B6 Today Z13.21 - Encounter for screening for nutritional disorder UA CC w/rflx Micro + Cult Today Z13.89 - Encounter for screening for other disorder Complete Blood Count Auto Diff Today Z13.0 - Encounter for screening for diseases of the blood and blood-forming organs and certain disorders involving the immune mechanism Medications: New Boostrix Tdap (diphth,pertus(acell),tetanus) 0.5 mL IM ONCE 0.5 mL 0RF NS Z23 - Encounter for immunization Refilled albuterol sulfate 90 mcg/actuation (Ventolin HFA) 1 inh inhalation QID PRN 8.5 grams 1RF shortness of breath or wheezing Coding Level of Care Code Est Pt Prev Care >65y(41297) Diagnoses Physical exam Z00.00 Osteopenia, unspecified location M85.80 Osteopenia location: unspecified Hypertension, unspecified type I10 Hypertension type: unspecified Additional Codes Vital Signs *Quality* - Advance Care Planning discussion: Completed/Scanned ([id number]) Vital Signs *Quality* - Time spent: 16-45 minutes ([id number])
[2024-03-02 10:02] VITALS: BP 124/74; PULSE 74; O2SAT 97; BMI 34.7
== END 2024-03-02 10:57 | disposition home or self-care (01) ==
PROVIDERS: PCP Nurse Practitioner Family; Visit Provider Nurse Practitioner Primary Care
DX: Z00.00 Encounter for general adult medical examination without abnormal findings (principal); M85.80 Other specified disorders of bone density and structure, unspecified site; I10 Essential (primary) hypertension; Z23 Encounter for immunization
CPT/HCPCS: 1123F; 90471; 90715; 99214; 99397; 99497

== ENCOUNTER 2024-03-16 09:52 | Outpatient (REF) | payer MEDICARE, SELFPAY ==
[2024-03-16 11:41] LABS: MANUAL DIFF FLAG NO
[2024-03-16 11:58] LABS: Basophils Absolute Auto 0.1 X10*3/uL (0.0-0.2); Basophils Percent Auto 2.2 % (0-2); Eosinophils Absolute Auto 0.1 X10*3/uL (0.0-0.4); Eosinophils Percent Auto 3.1 % (0-4); Hematocrit 37.2 % (37.0-47.0); Hemoglobin 12.4 g/dl (12.0-16.0); Imm Gran Abs Auto 0.01 X10*3/uL (0.00-0.03); Imm Gran Pct Auto 0.2 % (0.0-0.4); Lymphocytes Absolute Auto 1.7 X10*3/uL (1.2-4.9); Lymphocytes Percent Auto 38.8 % (20-40); Mean Corpuscular HGB Conc 33.3 g/dl (31.0-35.0); Mean Corpuscular Hemoglobin 28.8 pg (27.0-33.0); Mean Corpuscular Volume 86.5 fL (80.0-98.0); Mean Platelet Volume 10.2 fL (9.4-12.3); Monocytes Absolute Auto 0.4 X10*3/uL (0.1-1.2); Monocytes Percent Auto 9.6 % (2-11); Neutrophils Absolute Auto 2.1 x10*3/uL (2.0-8.3); Neutrophils Percent Auto 46.1 % (45-73); Platelet Count 235 X10*3/uL (160-400); White Blood Count 4.5 X10*3/uL (4.8-10.8)
[2024-03-16 12:07] LABS: Estimated Average Glucose 120 mg/dL; Hemoglobin A1c % 5.8 % (<6.0)
[2024-03-16 12:42] LABS: Alanine Aminotransferase 23 U/L (0-31); Alkaline Phosphatase 79 U/L (39-117); Anion Gap 12 (12-20); Aspartate Amino Transferase 31 U/L (5-31); Bilirubin Total 0.5 mg/dL (0.0-1.0); Blood Urea Nitrogen 20 mg/dL (9-16); Calcium 9.5 mg/dL (8.4-10.2); Carbon Dioxide 27 mmol/L (22-29); Chloride 104 mmol/L (96-108); Cholesterol 206 mg/dL (<200); Estimated Glomerular Filt Rate > 60; Glucose Random 106 mg/dL (60-115); HDL Cholesterol 67 mg/dL (>40); LDL Cholesterol Calculated 128 mg/dL (<100); Potassium 4.2 mmol/L (3.3-5.1); Sodium 139 mmol/L (135-145); Total Protein 7.3 g/dL (6.5-8.0); Triglycerides 59 mg/dL (<150)
[2024-03-16 12:47] LABS: TSH reflex Free T4 2.03 uIU/mL (0.32-4.0)
[2024-03-16 13:07] LABS: Vitamin B12 791 pg/mL (200-900)
[2024-03-20 10:08] LABS: Vitamin D 25-OH, D2 <4 ng/mL; Vitamin D 25-OH, D3 41 ng/mL; Vitamin D 25-OH, Total 41 ng/mL (30-100)
[2024-03-21 13:58] LABS: Vitamin B6 49.5 ng/mL (2.1-21.7)
== END 2024-03-16 09:53 | disposition home or self-care (01) ==
LOC: HO.HMGCLDS 09:52
PROVIDERS: PCP Nurse Practitioner Family; Visit Provider Nurse Practitioner Primary Care
DX: Z13.21 Encounter for screening for nutritional disorder (principal); Z13.220 Encounter for screening for lipoid disorders; Z13.1 Encounter for screening for diabetes mellitus; Z13.29 Encounter for screening for other suspected endocrine disorder; Z91.89 Other specified personal risk factors, not elsewhere classified; Z13.0 Encounter for screening for diseases of the blood and blood-forming organs and certain disorders involving the immune mechanism
CPT/HCPCS: 36415; 80053; 80061; 82306; 82607; 83036; 84207; 84443; 85025

== ENCOUNTER 2024-04-13 12:09 | Outpatient (AMB) | payer MEDICARE, SELFPAY ==
[2024-04-13 13:14] VITALS: BP 140/82; PULSE 74; TEMP 36.6; O2SAT 96; BMI 34.6
--- NOTE | 2024-04-13 13:14 | MHC.OFFWIV ---
Intake Vital Signs 04/13/24 13:14 Height 5 ft 3.5 in Weight 198 lb 4 oz BMI 34.6 BP 140/82 H Blood Pressure Location Rt brachial Position Sitting Pulse 74 Pulse Source Pulse Oximeter Temp 98 F Temp Source Oral Pulse Oximetry (%) 96 Oxygen Delivery Method Room Air Intake Visit Reasons: ?urine infection Intake Note: Pt is here today for UTI, pt states she has a burning sensation and also mentioned when she urinated a small (pebble) came out. Patient Tobacco Use Status: Never used Tobacco Allergies atorvastatin [ATORVASTATIN] Adverse Reaction (Intermediate, Verified 04/13/24 13:21) myalgias / cough Do you need a note to return to daycare/school/sports/work: No HPI HPI Comments History of Present Illness Details Patient presents to the walk-in today for sick visit Endorses burning with urination, increased frequency and suprapubic abdominal pain. Denies back pain, fevers or vomiting. PFSH Medical History COVID-19 vaccine administered History of urinary urgency Depression Asthma Hx of cardiac murmur Elevated cholesterol HTN (hypertension) Surgical History Hx of dilation and curettage Hx of tubal ligation History of pubovaginal sling H/O colonoscopy Social History Household Members: Family Housing: House Are you a primary managed care nurse to a significant other at home: No Do you presently have visiting nurse or other home services: No Patient Tobacco Use Status: Never used Tobacco e-Cigarette/Vaping Use: Never Used Second Hand Smoke Exposure: Yes service: No Current occupational status: retired Cognitive needs: No Hearing needs: No Vision needs: No Review of Systems Const All systems reviewed & are unremarkable except as noted in HPI and below Physical Exam Vital Signs: Last Vital Signs Temp 98 F 04/13/24 13:14 Pulse 74 04/13/24 13:14 BP 140/82 H 04/13/24 13:14 Pulse Ox 96 04/13/24 13:14 Oxygen Delivery Method Room Air 04/13/24 13:14 BMI result Body Mass Index 34.6 General: awake, alert, oriented. Answers questions appropriately. Fully engaged in examination. Skin: warm, dry, intact HEENT: Normocephalic. Hearing intact. Cardiac: External chest normal in appearance. Respiratory: No cough, audible wheezing or stridor. Abdomen: without gross distension. soft, nontender. no guarding. no CVA tenderness MS: No obvious swelling or deformities. Neurological: Oriented to person, place, time and situation. Thought process intact. No gait abnormalities appreciated. Psychiatric: Appropriate mood and affect. Good judgment and insight. Results AMB Urinalysis, Automated UA Leukoctes 125 Susy/uL Last Edit by Braydon Jacobson CMA on 04/13/24 13:54 UA Nitrite Negative Last Edit by Braydon Jacobson CMA on 04/13/24 13:54 UA Urobilinogen 0.2 mg/dL Last Edit by Braydon Jacobson CMA on 04/13/24 13:54 UA Protein 30 mg/dL Last Edit by Braydon Jacobson CMA on 04/13/24 13:54 UA pH 7.0 Last Edit by Braydon Jacobson CMA on 04/13/24 13:54 UA Blood 200 Raimundo/uL Last Edit by Braydon Jacobson CMA on 04/13/24 13:54 UA Specific [place] 1.015 Last Edit by Braydon Jacobson CMA on 04/13/24 13:54 UA Ketone Negative Last Edit by Braydon Jacobson CMA on 04/13/24 13:54 UA Bilirubin 0 mg/dL Last Edit by Braydon Jacobson CMA on 04/13/24 13:54 UA Glucose 0 mg/dL Last Edit by Braydon Jacobson CMA on 04/13/24 13:54 Results Reviewed Results Reviewed: UA reviewed: 2+ leuks, 3+ blood. negative nitrites Assessment & Plan Assessment & Plan (1) UTI (urinary tract infection): Code(s): N39.0 - Urinary tract infection, site not specified Plan Take antibiotics and Pyridium as directed. Increase fluid intake. All questions and concerns were answered, patient agrees with the plan Follow-up with PCP or return here for any new or worsening symptoms Orders: Orders AMB Urinalysis Automated Today Z13.9 - Encounter for screening, unspecified Medications: New ciprofloxacin HCl 500 mg PO BID 10 tabs 0RF phenazopyridine (Pyridium) 100 mg PO TID PRN 6 tabs 0RF pain Coding Level of Care Code Est Pt Level 3 (53375) Diagnoses UTI (urinary tract infection) N39.0
== END 2024-04-13 14:16 | disposition home or self-care (01) ==
PROVIDERS: PCP Nurse Practitioner Family; Visit Provider Registered Nurse Emergency
DX: Z13.9 Encounter for screening, unspecified (principal); N39.0 Urinary tract infection, site not specified
CPT/HCPCS: 81003; 99213

== ENCOUNTER 2024-05-07 10:02 | Outpatient (AMB) | payer MEDICARE, SELFPAY ==
[2024-05-07 10:04] VITALS: BP 140/88; PULSE 78; O2SAT 96; BMI 35.0
--- NOTE | 2024-05-07 10:04 | A.OFFPC_ITS ---
Vital Signs 05/07/24 10:04 Height 5 ft 3.5 in Weight 201 lb BMI 35.0 BP 140/88 H Blood Pressure Location Rt brachial Position Sitting Pulse 78 Pulse Source Pulse Oximeter Pulse Oximetry (%) 96 Oxygen Delivery Method Room Air Intake Visit Reasons: pain in legs/concern about foot Intake Note: pt is here for pain in legs and concern about foot Ornamental Rail Installer Required: No Accompanied by: Self / Same As Patient Allergies atorvastatin [ATORVASTATIN] Adverse Reaction (Intermediate, Verified 05/07/24 11:40) myalgias / cough Medication List - Last Reconciled 05/07/24 by KHANH Cross- albuterol sulfate 90 mcg/actuation (Ventolin HFA) 1 inh inhalation QID PRN ezetimibe 10 mg PO DAILY 90 days meloxicam 7.5 mg PO DAILY PRN 30 days bpbvtyebki-yphmjxnwp-tqyikxdel 40-5-12.5 mg 1 tab PO DAILY Tobacco use date assessed: 03/02/24 Fall risk assessment: No Falls in past year Last assessed Fall Risk: 05/07/24 Dental Screening Dental Screen Date: 03/02/24 HPI pain in legs/concern about foot HPI Details Pt c/o left thigh pain. She reports that this makes it difficult to walk. She describes the pain as mostly sharp, though can be dull. ? MP. Pt does have some lower back pain but it is not concurrent with her leg pain. Will order XR and labs. Will also order EMG/nerve conduction testing. Pt does not describe claudication type symptoms. Will also send meloxicam. Pt c/o right foot pain. She reports pain to her big toe. Will check uric acid. Denies fever, chills, and dizziness. [facility] Medical History COVID-19 vaccine administered History of urinary urgency Depression Asthma Hx of cardiac murmur Elevated cholesterol HTN (hypertension) Surgical History Hx of dilation and curettage Hx of tubal ligation History of pubovaginal sling H/O colonoscopy Social History Household Members: Family Housing: House Are you a primary physician locums urgent care to a significant other at home: No Do you presently have visiting nurse or other home services: No Patient Tobacco Use Status: Never used Tobacco e-Cigarette/Vaping Use: Never Used Second Hand Smoke Exposure: Yes service: No Current occupational status: retired Cognitive needs: No Hearing needs: No Vision needs: No Questionnaire PHQ-9 Over the last 2 weeks, how often have you been bothered by any of the following problems? 1. Little interest or pleasure in doing things: several days 2. Feeling down, depressed, or hopeless: more than half the days 3. Trouble falling or staying asleep, or sleeping too much: more than half the days 4. Feeling tired or having little energy: several days 5. Poor appetite or overeating: not at all 6. Feeling bad about yourself - or that you are a failure or have let yourself or your family down: not at all 7. Trouble concentrating on things, such as reading the newspaper or watching television: not at all 8. Moving or speaking so slowly that other people could have noticed. Or the opposite - being so fidgety or restless that you have been moving around a lot more than usual: not at all 9. Thoughts that you would be better off or of hurting yourself in some way: not at all Total score: 6 Depression Screening Interpretation: Negative Depression Screening Done: Yes 43081 - PHQ-9 Billing: Yes Source: Developed by Drs. Farzad Gamboa, Zulema Gray, Fabricio Alexander and colleagues, with an educational dung from [employer]. Thrive Questionnaire Date Thrive assessed: 05/07/24 I am a: Patient What is your living situation today?: I have a steady place to live Within the past 12 months, did the food you bought not last and you didn't have the money to get more?: Never true Within the past 12 months, did you worry whether your food would run out before you got money to buy more?: Never true Do you have trouble paying for medicines?: No Do you have trouble getting transportation to medical appointments?: No Do you have trouble paying your heating and electricity bill?: No Do you have trouble taking care of your child, family member or friend?: No Do you have trouble with day-to-day activities such as bathing, preparing meals, shopping, managing finances, etc.?: Yes Are you currently unemployed and looking for a job?: No Are you interested in more education?: No Please select the resources that you would like help with: None Currently or been in a relationship where the following occur: No concerns reported THRIVE Score: 0 AUDIT C Alcohol Use Questionnaire (AUDIT-C) 1. How often do you have a drink containing alcohol?: Never 3. How often do you have six or more drinks on one occasion?: Never Total Score: 0 Score Reviewed/Action Taken: Yes KARTHIK-7 AMB Questionnaire KARTHIK-7 Date KARTHIK - 7 assessed: 05/07/24 Feeling nervous, anxious, or on edge: 1 = Several days Not being able to stop or control worryin = Several days Worrying too much about different things: 1 = Several days Trouble relaxin = Several days Being so restless that it is hard to sit still: 0 = Not at all Becoming easily annoyed or irritable: 0 = Not at all Feeling afraid as if something awful might happen: 1 = Several days Total KARTHIK-7 score (0-4 normal; 5-9 mild; 10-14 moderate; 15-21 severe): 5 Source: Developed by Drs. Farzad Gamboa, Zulema Gray, Fabricio Alexander and colleagues, with an educational dung from [employer]. KARTHIK-7 Assessment Billing KARTHIK-7 Assessment Tool: KARTHIK-7 Assessment 99317 Review of Systems Const Reports as per HPI Physical exam (Primary Care) Vital Signs: Last Vital Signs Pulse 78 05/07/24 10:04 BP 140/88 H 05/07/24 10:04 Pulse Ox 96 05/07/24 10:04 Oxygen Delivery Method Room Air 05/07/24 10:04 BMI result Body Mass Index 35.0 Tobacco/Smoking Status: Tobacco use Status Tobacco use date assessed 03/02/24 05/07/24 10:06 Patient Tobacco Use Status Never used Tobacco 05/07/24 10:06 e-Cigarette/Vaping Use Never Used 05/07/24 10:06 PHQ-9: PHQ-9 Score PHQ-9: Total score 6 05/07/24 10:34 Depression Screening Interpretation: Negative Thrive Assessment: Date of Thrive Assessment Date Thrive assessed 05/07/24 05/07/24 10:06 Currently or been in a relationship where the following occur: No concerns reported Const General: cooperative Orientation/consciousness: patient oriented x3 Resp Effort & Inspection: normal respiratory effort Cardio Rate: regular rate Rhythm: regular rhythm Heart sounds: S1 normal heart sound present and S2 normal heart sound present Neuro General: patient oriented x3 Extrem Other: left anterior lateral thigh pain exacerbated with knee and hip flexion and extension, + dorsalis pedis pulse. No pain exacerbated with palpation of anterior lateral left thigh. right first toe with slight distal medial deviation, no signs of bunion formation. Able to flex and extend toe without pain. No pain with palpation Right lower extremity: no edema Left lower extremity: no edema Psych Appearance: grossly normal Mental Status: mental status grossly normal Speech and movement: Normal speech and movement present Affect: normal affect Attitude: cooperative Thought process: Normal thought process present Thought content: Normal thought content present Insight: Good insight present (Psych) Judgement: Good judgement present (Psych) Immunizations pneumoc 20-danica conj-dip cr(PF) 0.5 mL IM syringe Performing Provider: MARIA D Cross Performing Location: [facility] Administered by: RAFI Contreras on 05/07/24 10:49 Dose Route Admin Location Dispensed Lot Number Expiration Date [facility] Computer Operations Analyst 0.5 mL IM Right Deltoid 0.5 mL [id number] 02/14/25 1130-4410-47 [employer] VIS Given Date VIS Provided VIS Publication Date 05/07/24 Single Vaccine 21 Eligibility Eligibility Date Funding Source Not [facility] Eligible 05/07/24 Private Assessment and Plan Assessment & Plan (1) Toe pain, right: Code(s): M79.674 - Pain in right toe(s) Plan: Uric acid ordered (2) Leg pain: Code(s): M79.606 - Pain in leg, unspecified Plan: XR, EMG, and labs ordered, meloxicam sent. pt will contact me if med helps (3) Thigh pain: Code(s): M79.659 - Pain in unspecified thigh Plan: XR, EMG, and labs ordered Plan The patient agreed to the use of a medical practice administrator for this encounter. Scribed for MARIA D French by Maria Alejandra Schaeffer medical practice administrator, on 05/07/2024 at 10:30 EST. Orders: Orders Uric Acid Today M79.674 - Pain in right toe(s) Creatine Kinase Total Today M79.606 - Pain in leg, unspecified Erythrocyte Sedimentation Rate Today M79.606 - Pain in leg, unspecified, M79.659 - Pain in unspecified thigh C Reactive Protein Today M79.606 - Pain in leg, unspecified, M79.659 - Pain in unspecified thigh Rheumatoid Factor Today M79.606 - Pain in leg, unspecified, M79.659 - Pain in unspecified thigh NE electromyogram (EMG) Today M79.606 - Pain in leg, unspecified, M79.659 - Pain in unspecified thigh Pneumococcal 20 Immunization Today Z23 - Encounter for immunization XR toe RT min 2V Today M79.674 - Pain in right toe(s) XR femur LT 2V Today M79.659 - Pain in unspecified thigh Cyclic Citrullinated Peptide Today M79.606 - Pain in leg, unspecified, M79.659 - Pain in unspecified thigh NE nerve conduction velocity Today M79.606 - Pain in leg, unspecified, M79.659 - Pain in unspecified thigh Medications: New meloxicam 7.5 mg PO DAILY PRN 30 tabs 0RF leg pain 30 days Coding Level of Care Code Est Pt Level 3 (83470) Diagnoses Toe pain, right M79.674 Leg pain M79.606 Thigh pain M79.659 Additional Codes KARTHIK-7 Assessment Billing - KARTHIK-7 Assessment Tool: KARTHIK-7 Assessment 22529 ([id number])
== END 2024-05-07 11:16 | disposition home or self-care (01) ==
PROVIDERS: PCP Nurse Practitioner Family; Visit Provider Nurse Practitioner Family
DX: M79.674 Pain in right toe(s) (principal); M79.605 Pain in left leg; M79.652 Pain in left thigh; Z23 Encounter for immunization
CPT/HCPCS: 90471; 90677; 99213

== ENCOUNTER 2024-05-07 10:51 | Outpatient (REF) | payer MEDICARE, SELFPAY ==
--- NOTE | ~2024-05-07 | XR_ITS ---
EXAMINATION: XR FEMUR, LEFT CLINICAL INFORMATION: Left thigh pain. COMPARISON: None available. TECHNIQUE: AP and lateral views of the left femur were obtained. FINDINGS: There is moderate cephalad joint space narrowing of the left hip with marginal osteophytes and subchondral sclerosis. Bones are osteopenic. No fractures. Mild osteoarthritis is noted in the left SI joint. Imaged portion of the left knee joint is unremarkable. No acute soft tissue findings. XR/XR femur LT 2V IMPRESSION: Moderate osteoarthritis in the left hip. No acute osseous findings. Electronically signed by: Catracho Olvera MD 06/01/2024 05:12 PM EDT
== END 2024-05-07 10:52 | disposition home or self-care (01) ==
LOC: HO.HMGCX 10:51
PROVIDERS: PCP Nurse Practitioner Family; Visit Provider Nurse Practitioner Family
DX: M79.652 Pain in left thigh (principal)
CPT/HCPCS: 73552

== ENCOUNTER → 2024-06-19 09:03 | Outpatient (BNVA) | payer MEDICARE, SELFPAY | PROVIDERS: PCP Nurse Practitioner Family ==

== ENCOUNTER → 2024-07-10 10:06 | Outpatient (BNVA) | payer MEDICARE, SELFPAY | PROVIDERS: PCP Nurse Practitioner Family ==

== ENCOUNTER 2024-07-10 10:55 | Outpatient (REF) | payer MEDICARE, SELFPAY ==
[2024-07-10 13:45] LABS: Rheumatoid Factor < 13.0 IU/mL (<15.0)
[2024-07-10 13:47] LABS: C Reactive Protein 0.27 mg/dL (< or = 0.50); Uric Acid 4.1 mg/dL (2.4-5.7)
[2024-07-10 14:15] LABS: Erythrocyte Sedimentation Rate 23 MM/HR (0-20)
[2024-07-15 14:37] LABS: Cyclic Citrullinated Peptide <16 UNITS
== END 2024-07-10 10:56 | disposition home or self-care (01) ==
LOC: HO.HMGCLDS 10:55
PROVIDERS: PCP Nurse Practitioner Family; Visit Provider Nurse Practitioner Family
DX: Z01.89 Encounter for other specified special examinations (principal); M79.659 Pain in unspecified thigh; M79.606 Pain in leg, unspecified; M79.674 Pain in right toe(s)
CPT/HCPCS: 36415; 82550; 84550; 85652; 86140; 86200; 86431

== ENCOUNTER 2024-11-25 10:24 | Outpatient (AMB) | payer MEDICARE, SELFPAY ==
[2024-11-25 10:37] VITALS: BP 120/72; PULSE 67; O2SAT 96; BMI 34.5
--- NOTE | 2024-11-25 10:37 | A.OFFPC_ITS ---
Vital Signs 11/25/24 10:37 Height 5 ft 3.5 in Weight 198 lb BMI 34.5 BP 120/72 Blood Pressure Location Lt brachial Position Sitting Pulse 67 Pulse Source Pulse Oximeter Pulse Oximetry (%) 96 Oxygen Delivery Method Room Air Intake Visit Reasons: follow up - per jerri Allergies atorvastatin [ATORVASTATIN] Adverse Reaction (Intermediate, Verified 11/25/24 10:37) myalgias / cough Tobacco use date assessed: 11/25/24 Fall risk assessment: No Falls in past year Last assessed Fall Risk: 11/25/24 Dental Screening Dental Screen Date: 11/25/24 Did you have a dental visit in the last 12 months?: Yes Did you have a dental problem in the last 6 months where you did not have access to dental care?: No Was dental information given to patient?: Patient has dentist HPI follow up - per jerri HPI Details Chief Complaint Chronic left lateral thigh pain that worsens with movement. History of Present Illness The patient is a 74-year-old female presenting with chronic left lateral thigh pain. She has a history of moderate osteoarthritis in the left hip, which was demonstrated by a previous femur x-ray. The patient reports that her discomfort becomes more pronounced with physical movement and is absent upon palpation, but she experiences tenderness during knee extension. Additionally, there is a weak pedal pulse to her left. There is also a possible leg length discrepancy. The differential diagnosis includes referred pain from the hip or meralgia paresth etica??? Given her sedentary lifestyle characterized by frequent sitting, her symptoms have worsened over time. NOTE: i did refer her to PT in the past, pt never went. dyslipidemia: will recheck labs, on no meds for this currently. mammo ordered Social History - Reduced physical activity with a predo minantly sedentary lifestyle. Health Maintenance Review of Systems Physical Exam General: Cooperative, healthy appearing, comfortable, no acute distress and well developed Orientation: Patient oriented x3 Limitations: No limitations Head: Normal to inspection Ears: Hearing grossly normal bilaterally Nose: Normal external nose present Face and sinus: Normal facial exam Eyes: Appearance normal, both eyes and all related structures Neck: Normal visual inspection and Yes full ROM Respiratory: Normal respiratory effort and able to speak in complete sentences. Clear to auscultation bilaterally Cardiovascular: Regular rate and rhythm. Normal S1 and S2 GI: Normal to inspection. Soft to palpation and nontender Skin: No rashes or lesions noted Neuro: Patient oriented x3 Extremities: Left lower extremity appears shorter than the right. Weak pedal pulse on the left. No tenderness with palpation. Tenderness with extension at the knee, especially with extension. No active swelling noted. Results - Tests: Previous x-ray demonstrated mod erate osteoarthritis of the left hip. Plan The focus of this visit is the management of the patient's chronic lateral thigh pain attributable to osteoarthritis of the left hip, with consideration of potential meralgia paresthetica and leg length discrepancy. A referral to a car porter is planned for comprehensive evaluation of these conditions. Efforts will be made to encourage increased physical activity, while taking precautions to prevent pain exacerbation, by recommending ohl-uhydyq-ucikazm exercises. Continued monitoring of her condition and adjustment of care strategies will help manage symptoms effectively. Discussion Notes I discussed with the patient the possible causes of her thigh pain, including the confirmed osteoarthritis of the hip as seen on her previous x-ray and the potential diagnoses of meralgia paresthetica or discrepancies in leg length. I explained the importance of consulting a car porter to explore treatment options, such as physical therapy or nerve evaluation. We discussed gradually increasing her activity level to improve overall health, using pain management strategies, and avoiding actions that exacerbate pain. The patient expressed understanding and agreement with the proposed plan. Patient Instructions - Follow up with a car porter for furth er evaluation. - Gradually increase physical activity t hrough dli-audden-qckuukw exercises. - Avoid activities that make pain worse. - Notify me if symptoms significantly ch elizabeth or worsen. PFSH Medical History COVID-19 vaccine administered History of urinary urgency Depression Asthma Hx of cardiac murmur Elevated cholesterol HTN (hypertension) Surgical History Hx of dilation and curettage Hx of tubal ligation History of pubovaginal sling H/O colonoscopy Social History Household Members: Family Housing: House Are you a primary women's health care nurse practitioner to a significant other at home: No Do you presently have visiting nurse or other home services: No Patient Tobacco Use Status: Never used Tobacco e-Cigarette/Vaping Use: Never Used Second Hand Smoke Exposure: Yes service: No Current occupational status: retired Cognitive needs: No Hearing needs: No Vision needs: No Questionnaire PHQ-9 Over the last 2 weeks, how often have you been bothered by any of the following problems? 1. Little interest or pleasure in doing things: not at all 2. Feeling down, depressed, or hopeless: not at all 3. Trouble falling or staying asleep, or sleeping too much: several days 4. Feeling tired or having little energy: several days 5. Poor appetite or overeating: not at all 6. Feeling bad about yourself - or that you are a failure or have let yourself or your family down: not at all 7. Trouble concentrating on things, such as reading the newspaper or watching television: not at all 8. Moving or speaking so slowly that other people could have noticed. Or the opposite - being so fidgety or restless that you have been moving around a lot more than usual: not at all 9. Thoughts that you would be better off or of hurting yourself in some way: not at all Total score: 2 Depression Screening Interpretation: Negative Depression Screening Done: Yes 01459 - PHQ-9 Billing: Yes Source: Developed by Drs. Farzad Gamboa, Zulema Gray, Fabricio Alexander and colleagues, with an educational dung from [employer]. Thrive Questionnaire Date Thrive assessed: 11/25/24 I am a: Patient What is your living situation today?: I have a steady place to live Within the past 12 months, did the food you bought not last and you didn't have the money to get more?: I choose not to answer this question Within the past 12 months, did you worry whether your food would run out before you got money to buy more?: I choose not to answer this question Do you have trouble paying for medicines?: No Do you have trouble getting transportation to medical appointments?: No Do you have trouble paying your heating and electricity bill?: No Do you have trouble taking care of your child, family member or friend?: No Do you have trouble with day-to-day activities such as bathing, preparing meals, shopping, managing finances, etc.?: No Are you currently unemployed and looking for a job?: No Are you interested in more education?: No Please select the resources that you would like help with: Transportation Currently or been in a relationship where the following occur: No concerns reported THRIVE Score: 0 AUDIT C Alcohol Use Questionnaire (AUDIT-C) 1. How often do you have a drink containing alcohol?: Never 3. How often do you have six or more drinks on one occasion?: Never Total Score: 0 Score Reviewed/Action Taken: Yes KARTHIK-7 AMB Questionnaire KARTHIK-7 Date KARTHIK - 7 assessed: 11/25/24 Feeling nervous, anxious, or on edge: 1 = Several days Not being able to stop or control worryin = Several days Worrying too much about different things: 1 = Several days Trouble relaxin = Several days Being so restless that it is hard to sit still: 0 = Not at all Becoming easily annoyed or irritable: 0 = Not at all Feeling afraid as if something awful might happen: 0 = Not at all Total KARTHIK-7 score (0-4 normal; 5-9 mild; 10-14 moderate; 15-21 severe): 4 Source: Developed by Drs. Frazad Gamboa, Zulema Gray, Fabricio Alexander and colleagues, with an educational dung from [employer]. KARTHIK-7 Assessment Billing KARTHIK-7 Assessment Tool: KARTHIK-7 Assessment 63079 Physical exam (Primary Care) Vital Signs: Last Vital Signs Pulse 67 11/25/24 10:37 BP 120/72 11/25/24 10:37 Pulse Ox 96 11/25/24 10:37 Oxygen Delivery Method Room Air 11/25/24 10:37 BMI result Body Mass Index 34.5 Tobacco/Smoking Status: Tobacco use Status Tobacco use date assessed 11/25/24 11/25/24 10:39 Patient Tobacco Use Status Never used Tobacco 11/25/24 10:39 e-Cigarette/Vaping Use Never Used 11/25/24 10:39 PHQ-9: PHQ-9 Score PHQ-9: Total score 6 11/25/24 10:39 Depression Screening Interpretation: Negative Thrive Assessment: Date of Thrive Assessment Date Thrive assessed 11/25/24 11/25/24 10:39 Currently or been in a relationship where the following occur: No concerns reported Coding Level of Care Code Est Pt Level 3 (34087) Diagnoses Abnormal gait R26.9 Left thigh pain M79.652 Dyslipidemia E78.5 Osteopenia, unspecified location M85.80 Osteopenia location: unspecified Additional Codes KARTHIK-7 Assessment Billing - KARTHIK-7 Assessment Tool: KARTHIK-7 Assessment 28003 ([id number]) PHQ-9 - 40389 - PHQ-9 Billing: Yes ([id number]) Assessment & Plan Assessment & Plan (1) Abnormal gait: Code(s): R26.9 - Unspecified abnormalities of gait and mobility Category: Medical (2) Left thigh pain: Code(s): M79.652 - Pain in left thigh Category: Medical (3) Dyslipidemia: Code(s): E78.5 - Hyperlipidemia, unspecified Category: Medical (4) Osteopenia: Code(s): M85.80 - Other specified disorders of bone density and structure, unspecified si te Category: Medical Qualifiers: Osteopenia location: unspecified Qualified Code(s): M85.80 - Other specified disorders of bone density and structure, unspecified site Plan . Orders: Orders Complete Blood Count Auto Diff Today E78.5 - Hyperlipidemia, unspecified Comprehensive [place]. Panel Fast Today E78.5 - Hyperlipidemia, unspecified TSH reflex Free T4 Today E78.5 - Hyperlipidemia, unspecified UA CC w/rflx Micro + Cult Today E78.5 - Hyperlipidemia, unspecified MM screening mammo BI Today Z12.31 - Encounter for screening mammogram for malignant neoplasm of breast Lipid Panel Today E78.5 - Hyperlipidemia, unspecified XR DEXA axial skeleton 3 Months M85.80 - Other specified disorders of bone density and structure, unspecified site Referrals Physiatry Referral M79.652 - Pain in left thigh, R26.9 - Unspecified abnormalities of gait and mobility
--- OUTSIDE RECORDS SUMMARY | 2024-11-25 11:57 | XMS_ITS | Patient Health Record ---
Author Organization [facility] Address [address] [place] [address] Care Team Providers Care Composing Machine Operator Name Role Phone PEGGY HENNESSY Primary Care Provider Deion Waggoner Jr Unavailable [phone] Allergies Allergen (clinical drug ingredient) Drug/Non Drug Allergy documented on EMR Reaction Allergy Type Onset Date Status Pollen pollen (uncoded) Unknown Allergy Act chadd Reason For Referral No Information Medications Medication SIG (Take, Route, Frequency, Duration) Notes Start Date End Date Status MiraLax (colon prep) 8.3 ounce ((238) grams mixed with Gatorade or Crystal Light orally begin at 5:00 p.m. the day before the procedure for 1 day 02/02/2021 Active Immunizations Vaccine Route Administration Date Status Comme nts Influenza Unknown 05/17/2020 Administered Problems Problem Type SNOMED Code ICD Code Onset Dates Problem Status W/U Status Risk Notes Problem [id number] Special screenin g for malignant neoplasms, colon (Z12.11) Active confirmed Problem [id number] Encounter for other preprocedural examination (Z01.818) Active confirmed Plan Of Treatment Future Test Test Name Order Date COLONOSCOPY 05/18/2015 COLONOSCOPY 02/02/2021 Insurance Providers Payer Name Payer Address Payer Phone Subscriber Number Group Number Insured Name Patient Relationship to Insured Coverage Start Date Coverage End Date [facility] [address] [place], [place] [id number] ANGIE KENDRICK Self - patient is the insured Medical (General) History Medical History History ICD Code colonoscopy 07/31, negative for polyps, previous history of tubular adenoma, five-year followup for family history history of iron deficiency anemia Denies [place],DM,CVA,Lung disease,renal dise ase hypertension anxiety Surgical History Surgery Date(Month/Year) tubal ligation bladder sling surgery
== END 2024-11-25 11:50 | disposition home or self-care (01) ==
PROVIDERS: PCP Nurse Practitioner Family; Visit Provider Nurse Practitioner Family
DX: R26.9 Unspecified abnormalities of gait and mobility (principal); M79.652 Pain in left thigh; E78.5 Hyperlipidemia, unspecified; M85.80 Other specified disorders of bone density and structure, unspecified site

== ENCOUNTER → 2024-11-25 10:24 | Outpatient (BNVA) | payer MEDICARE, SELFPAY | PROVIDERS: PCP Nurse Practitioner Family; Visit Provider Nurse Practitioner Family | DX: R26.9 Unspecified abnormalities of gait and mobility (principal); M79.652 Pain in left thigh; E78.5 Hyperlipidemia, unspecified; M85.80 Other specified disorders of bone density and structure, unspecified site | CPT/HCPCS: 96127; 99212 ==

== ENCOUNTER 2024-11-28 09:21 | Outpatient (REF) | payer MEDICARE, SELFPAY ==
--- OUTSIDE RECORDS SUMMARY | 2024-11-28 09:23 | XMS_ITS | Patient Health Record ---
Author Organization [facility] Address [address] [place] [address] Care Team Providers Care Building Construction Superintendent Name Role Phone PEGGY HENNESSY Primary Care Provider Deion Waggoner Jr Unavailable Allergies Allergen (clinical drug ingredient) Drug/Non Drug [...] Problem Status W/U Status Risk Notes Problem [id number] Special screenin g for malignant neoplasms, colon (Z12.11) Active confirmed Problem [id number] Encounter for other preprocedural examination (Z01.818) Active confirmed Plan Of Treatment Future Test Test Name Order Date COLONOSCOPY 05/18/2015 COLONOSCOPY 02/02/2021 Insurance Providers Payer Name Payer Address Payer Phone Subscriber Number Group Number Insured Name Patient Relationship to Insured Coverage Start Date Coverage End Date [facility] [address] [place], [place] [id number] ANGIE KENDRICK Self - patient is the insured Medical (General) History Medical History History ICD Code colonoscopy 07/31, negative for polyps, previous history of tubular adenoma, five-year followup for family history history of iron deficiency anemia Denies [place],DM,CVA,Lung disease,renal dise ase hypertension anxiety Surgical History Surgery Date(Month/Year) tubal ligation bladder sling surgery
[2024-11-28 11:21] LABS: Appearance Urine Clear; Color Urine Yellow; Glucose Urine UA Negative (Negative); Leukocyte Esterase Urine Small (1+) (Negative); Nitrite Urine Negative (Negative); PH 6.5 (5.0-9.0); Specific Gravity - Urine 1.015 (1.005-1.025); UMIC TRIGGER UACC YES; Urine Blood Trace (Negative); Urine Ketones Negative (Negative); Urine Protein Negative (Neg-Trace)
[2024-11-28 11:21] LABS: MANUAL DIFF FLAG NO
[2024-11-28 11:30] LABS: Basophils Absolute Auto 0.1 X10*3/uL (0.0-0.2); Basophils Percent Auto 2.3 % (0-2); Eosinophils Absolute Auto 0.2 X10*3/uL (0.0-0.4); Eosinophils Percent Auto 3.6 % (0-4); Hematocrit 38.8 % (37.0-47.0); Imm Gran Abs Auto 0.01 X10*3/uL (0.00-0.03); Imm Gran Pct Auto 0.2 % (0.0-0.4); Lymphocytes Absolute Auto 1.1 X10*3/uL (1.2-4.9); Lymphocytes Percent Auto 23.4 % (20-40); Mean Corpuscular HGB Conc 33.5 g/dl (31.0-35.0); Mean Corpuscular Hemoglobin 28.5 pg (27.0-33.0); Mean Corpuscular Volume 85.1 fL (80.0-98.0); Monocytes Absolute Auto 0.4 X10*3/uL (0.1-1.2); Monocytes Percent Auto 8.6 % (2-11); Neutrophils Absolute Auto 2.9 x10*3/uL (2.0-8.3); Neutrophils Percent Auto 61.9 % (45-73); Platelet Count 240 X10*3/uL (160-400); Red Blood Count 4.56 X10*6/uL (4.20-5.50); Red Cell Distribution Width 12.3 % (11.0-16.0); White Blood Count 4.7 X10*3/uL (4.8-10.8)
[2024-11-28 11:38] LABS: Bacteria Urine None Seen (None Seen); Hyaline Casts Urine 0-2 /LPF (0-2); RBC Urine 0-2 /HPF (0-2); UACC Culture Trigger YES; WBC Urine 0-5 /HPF (0-5)
[2024-11-28 12:10] LABS: Alanine Aminotransferase 21 U/L (0-31); Alkaline Phosphatase 81 U/L (39-117); Anion Gap 10 (12-20); Aspartate Amino Transferase 32 U/L (5-31); Bilirubin Total 0.5 mg/dL (0.0-1.0); Blood Urea Nitrogen 19 mg/dL (9-16); Calcium 9.7 mg/dL (8.4-10.2); Carbon Dioxide 28 mmol/L (22-29); Chloride 106 mmol/L (96-108); Cholesterol 232 mg/dL (<200); Estimated Glomerular Filt Rate > 60; Glucose Fasting 97 mg/dL (60-99); HDL Cholesterol 71 mg/dL (>40); LDL Cholesterol Calculated 143 mg/dL (<100); Potassium 4.3 mmol/L (3.3-5.1); Sodium 140 mmol/L (135-145); TSH reflex Free T4 2.01 uIU/mL (0.32-4.0); Total Protein 7.8 g/dL (6.5-8.0); Triglycerides 91 mg/dL (<150)
== END 2024-11-28 09:22 | disposition home or self-care (01) ==
LOC: HO.HMGCLDS 09:21
PROVIDERS: PCP Nurse Practitioner Family; Visit Provider Nurse Practitioner Family
DX: E78.5 Hyperlipidemia, unspecified (principal); R31.29 Other microscopic hematuria
CPT/HCPCS: 36415; 80053; 80061; 81001; 84443; 85025; 87086

== ENCOUNTER 2024-12-21 09:50 | Outpatient (REF) | payer MEDICARE, SELFPAY ==
--- NOTE | ~2024-12-21 | US_ITS ---
CLINICAL HISTORY: R31.29 - Other microscopic hematuria US retroperitoneum with color Doppler Comparison: None Findings: Right kidney normal size and echotexture, 11.5 cm length. No hydronephrosis. Normal color flow. No nephrolithiasis or renal masses. Left kidney normal size and echotexture, 10.9 cm in length. No hydronephrosis. Normal color flow. Indeterminate hypoechoic lesion upper pole left kidney measuring 2.0 x 1.5 x 1.4 cm Urinary bladder demonstrates a thin internal septation of unknown clinical significance. Prevoid volume 262.0 mL. Postvoid volume 111 mL. Ureteral jets are visualized bilaterally Impression: 1. Indeterminate hypoechoic lesion upper pole left kidney measuring 2.0 x 1.5 x 1.4 cm. Correlate with a contrast-enhanced CT or MRI. 2. Elevated postvoid residual. 3. Internal thin septation within the lumen of the urinary bladder of uncertain clinical significance can be correlated with cystoscopy. 4. Postmenopausal uterine atrophy. Markedly thickened endometrium correlate with pelvic sonogram. This document has been electronically signed by: Nitin Petty MD on 12/22/2024 06:55:55
--- OUTSIDE RECORDS SUMMARY | 2024-12-21 11:28 | XMS_ITS | Patient Health Record ---
Author Organization [facility] Address [address] [place] [address] Care Team Providers Care Hr Shared Services Consultant Name Role Phone PEGGY HENNESSY Primary Care [...] Problem Status W/U Status Risk Notes Problem [id number] Special screenin g for malignant neoplasms, colon (Z12.11) Active confirmed Problem [id number] Encounter for other preprocedural examination (Z01.818) Active confirmed Plan Of Treatment Future Test Test Name Order Date COLONOSCOPY 05/18/2015 COLONOSCOPY 02/02/2021 Insurance Providers Payer Name Payer Address Payer Phone Subscriber Number Group Number Insured Name Patient Relationship to Insured Coverage Start Date Coverage End Date [facility] [address] [place], [place] [id number] ANGIE KENDRICK Self - patient is the insured Medical (General) History Medical History History ICD Code colonoscopy 07/31, negative for polyps, previous history of tubular adenoma, five-year followup for family history history of iron deficiency anemia Denies [place],DM,CVA,Lung disease,renal dise ase hypertension anxiety Surgical History Surgery Date(Month/Year) tubal ligation bladder sling surgery
== END 2024-12-21 09:51 | disposition home or self-care (01) ==
LOC: HO.US 09:50
PROVIDERS: PCP Nurse Practitioner Family; Visit Provider Nurse Practitioner Family
DX: R31.29 Other microscopic hematuria (principal)
CPT/HCPCS: 76770

== ENCOUNTER → 2024-12-21 09:54 | Outpatient (BNV) | payer MEDICARE, SELFPAY | PROVIDERS: PCP Nurse Practitioner Family; Visit Provider Radiology Diagnostic Radiology | DX: N28.89 Other specified disorders of kidney and ureter (principal); R39.14 Feeling of incomplete bladder emptying | CPT/HCPCS: 76770 ==

== ENCOUNTER 2024-12-31 11:56 | Outpatient (REF) | payer MEDICARE, SELFPAY ==
--- NOTE | ~2024-12-31 | CT_ITS ---
CLINICAL HISTORY: R31.29 - Other microscopic hematuria CT abdomen and pelvis with contrast Comparison: None Findings: The lung bases are clear. Unremarkable gallbladder and solid organs. No urolithiasis. No bowel obstruction, pneumoperitoneum, or pneumatosis. 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 Pelvic contents are otherwise unremarkable. Normal appendix. The bones are intact. 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 Recommend gynecological consultation for follow-up. This document has been electronically signed by: Kai Carson MD on 01/02/2025 08:34:50
[2024-12-31] MEDS: iohexoL 350 MG/ML 100 ML INFUS..BTL IV (14:33)
--- OUTSIDE RECORDS SUMMARY | 2024-12-31 14:57 | XMS_ITS | Patient Health Record ---
Author Organization [facility] Address [address] [place] [address] Care Team Providers Care Field Care Coordinator Name Role Phone PEGGY HENNESSY Primary Care [...] Problem Status W/U Status Risk Notes Problem [id number] Special screenin g for malignant neoplasms, colon (Z12.11) Active confirmed Problem 309281172 Encounter for other preprocedural examination (Z01.818) Active confirmed Plan Of Treatment Future Test Test Name Order Date COLONOSCOPY 05/18/2015 COLONOSCOPY 02/02/2021 Insurance Providers Payer Name Payer Address Payer Phone Subscriber Number Group Number Insured Name Patient Relationship to Insured Coverage Start Date Coverage End Date [facility] [address] [place], [place] [id number] ANGIE KENDRICK Self - patient is the insured Medical (General) History Medical History History ICD Code colonoscopy 07/31, negative for polyps, previous history of tubular adenoma, five-year followup for family history history of iron deficiency anemia Denies [place],DM,CVA,Lung disease,renal dise ase hypertension anxiety Surgical History Surgery Date(Month/Year) tubal ligation bladder sling surgery
== END 2024-12-31 11:57 | disposition home or self-care (01) ==
LOC: HO.CT 11:56
PROVIDERS: PCP Nurse Practitioner Family; Visit Provider Nurse Practitioner Family
DX: R31.29 Other microscopic hematuria (principal); N28.9 Disorder of kidney and ureter, unspecified
CPT/HCPCS: 74177; Q9967

== ENCOUNTER → 2024-12-31 12:04 | Outpatient (BNV) | payer MEDICARE, SELFPAY | PROVIDERS: PCP Nurse Practitioner Family; Visit Provider Specialist | DX: R31.29 Other microscopic hematuria (principal) | CPT/HCPCS: 74177 ==

== ENCOUNTER 2025-02-23 10:30 | Outpatient (REF) | payer MEDICARE, SELFPAY ==
--- NOTE | ~2025-02-23 | MM_ITS ---
EXAMINATION: MM SCREENING DIGITAL BREAST TOMOSYNTHESIS, BILATERAL CLINICAL INFORMATION: Screening. Asymptomatic. COMPARISON: Mammography: Comparison is made with available priors TECHNIQUE: Digital breast mammography with tomosynthesis is performed in both the craniocaudal and mediolateral oblique views along with computer-aided detection (CAD). FINDINGS: There are scattered areas of fibroglandular density (ACR BI-RADS breast composition Category b). Right: Focal asymmetry upper outer breast anterior depth. No suspicious calcifications or other abnormal findings. Left: There are no significant masses, abnormal calcifications, or other abnormalities. MM/MM tomosynthesis screening BI IMPRESSION: Additional imaging is recommended ASSESSMENT: BI-RADS BI-RADS 0 - Incomplete: Needs additional Imaging. RECOMMENDATION: 1. Additional views of the right breast. 2. Targeted ultrasound if warranted after review of the additional views. 3. Radiology department staff will contact the patient for additional imaging. Additional Imaging required This examination should not preclude the clinical evaluation of a suspicious palpable abnormality. This patient's information was entered into a reminder system with a target due date for their next mammogram. Electronically signed by: Laura Zhou DO 03/02/2025 03:58 PM EDT
--- NOTE | ~2025-02-23 | MM_ITS ---
EXAMINATION: DXA BONE DENSITY AXIAL HISTORY: M85.80 - Other specified disorders of bone density and structure, unspecified... TECHNIQUE: mytrax Dual energy absorptiometry (DEXA) of the lumbar spine, total left hip, and femoral neck was performed. COMPARISON: Comparison is made with the prior examination dated 02/21/2023. FINDINGS: The bone mineral density of the lumbar spine is 1.117, corresponding to a T-score of -0.5, and a Z-score of 0.5. This is indicative of normal bone mineral density. This represents a BMD change of 4.2% compared to the prior exam. This is statistically significant. The bone mineral density of the left total hip is 0.687, corresponding to a T-score of -2.5, and a Z-score of -1.5. This is indicative of osteoporosis. This represents a BMD change of -14.0% compared to the prior exam. This is statistically significant. The bone mineral density of the left femoral neck is 0.818, corresponding to a T-score of -1.6, and a Z-score of -0.2. This is indicative of osteopenia. This represents a BMD change of 9.8% compared to the prior exam. FRACTURE RISK: The FRAX index suggests a ten year probability of major osteoporotic fracture of 10.3%, and of hip fracture 1.7%. MM/XR DEXA axial skeleton IMPRESSION: Based on bone mineral density, and according to World Health Organization (WHO) criteria, the diagnosis is consistent with osteoporosis. All bone density values are in grams per centimeter squared (g/cm2). Statistically, 68% of repeat scans fall within 1 SD (+/- 0.010 g/cm2 for AP spine L1-L4) and 1 SD (+/- 0.012 g/cm2 for femur total) FRAX is a trademark of the [employer] Met[employer], a World Health Organization (WHO) Collaborating Center. Electronically signed by: Farzad Serra MD 02/23/2025 12:43 PM EDT
--- OUTSIDE RECORDS SUMMARY | 2025-02-23 12:13 | XMS_ITS | Patient Health Record ---
Author Organization [facility] Address [address] [place] [address] Care Team Providers Care Molder Vacuum Name Role Phone PEGGY HENNESSY Primary Care Provider Deion Waggoner Jr Unavailable [phone] Allergies Allergen (clinical drug ingredient) Drug/Non Drug [...] Problem Status W/U Status Risk Notes Problem [id number] Special screenin g for malignant neoplasms, colon (Z12.11) Active confirmed Problem 104100351 Encounter for other preprocedural examination (Z01.818) Active confirmed Plan Of Treatment Future Test Test Name Order Date COLONOSCOPY 05/18/2015 COLONOSCOPY 02/02/2021 Insurance Providers Payer Name Payer Address Payer Phone Subscriber Number Group Number Insured Name Patient Relationship to Insured Coverage Start Date Coverage End Date [facility] [address] [place], [place] [id number] [phone] [id number] ANGIE KENDRICK Self - patient is the insured Medical (General) History Medical History History ICD Code colonoscopy 07/31, negative for polyps, previous history of tubular adenoma, five-year followup for family history history of iron deficiency anemia Denies [place],DM,CVA,Lung disease,renal dise ase hypertension anxiety Surgical History Surgery Date(Month/Year) tubal ligation bladder sling surgery
== END 2025-02-23 10:31 | disposition home or self-care (01) ==
LOC: HO.MAMMO 10:30
PROVIDERS: PCP Nurse Practitioner Family; Visit Provider Nurse Practitioner Family
DX: Z12.31 Encounter for screening mammogram for malignant neoplasm of breast (principal); Z13.820 Encounter for screening for osteoporosis; M85.80 Other specified disorders of bone density and structure, unspecified site; R35.1 Nocturia; R06.83 Snoring; R31.29 Other microscopic hematuria; R39.9 Unspecified symptoms and signs involving the genitourinary system; M81.0 Age-related osteoporosis without current pathological fracture
CPT/HCPCS: 51798; 77063; 77067; 77080; 81003; 87086; 88112; 99202

== ENCOUNTER → 2025-02-23 11:00 | Outpatient (BNV) | payer MEDICARE, SELFPAY | PROVIDERS: PCP Nurse Practitioner Family; Visit Provider Radiology Diagnostic Radiology | DX: E28.39 Other primary ovarian failure (principal) | CPT/HCPCS: 77080 ==

== ENCOUNTER 2025-02-23 14:21 | Outpatient (AMB) | payer MEDICARE, SELFPAY ==
--- NOTE | 2025-02-23 14:45 | A.OFFVIS_ITS ---
Intake Visit Reasons: incomplete bladder emptying/kidney lesion Intake Note: New Patient presents for initial visit for incomplete bladder emptying and kidney lesion Urology Medications: none Blood Thinner: none PVR: 44ml's Beer Runner Required: No Accompanied by: Self / Same As Patient Allergies atorvastatin [ATORVASTATIN] Adverse Reaction (Intermediate, Verified 02/23/25 15:42) myalgias / cough Medication List - Last Reconciled 02/23/25 by GAURANG Harris amlodipine-olmesartan 5-40 mg 1 tab PO DAILY hydrochlorothiazide 12.5 mg PO DAILY pitavastatin calcium (Livalo) 1 mg PO QPM 30 days HPI Comments Details: Monalisa is a very pleasant 74-year-old female patient of Dr. Radford. She has a past medical history of depression, asthma, cardiac murmur, hypercholesteremia, and hypertension. She presents to the office today as a new patient for ongoing lower urinary tract symptoms she has been experiencing. In discussion with the patient today she reports having followed up with her PCP at which time she was noted to have microscopic hematuria and a retroperitoneal ultrasound was ordered for further assessment evaluation. These results were reviewed and communicated with the patient today 01/08 bilateral kidneys are n ormal in size and echotexture. Indeterminate hyperechoic lesion upper pole left kidney measuring 2.0 cm elevated postvoid residual of 111 mL. Internal thin septation with the lumen of the urinary bladder of uncertain clinical significance. Markedly thickened endometrium correlate with pelvic sonogram. Therefore a CT was ordered for further assessment evaluation and these results were also reviewed and communicated with the patient today. 01/08 no urolithiasis the uterus is heterogeneous in appearance possible hydrometra otherwise pelvic contents are unremarkable. She reports having been referred to radio presenter by her PCP and is awaiting call back for appointment. She reports ongoing issues with nocturia however is unsure if this is related to her poor sleep habits or hip pain. She also reports noting episodes of urinary urgency and frequency however discusses these symptoms happen shortly after consumption of her water pill. We discussed correlation of water pill and urinary urgency and frequency. We also discussed potential causes of nocturia. In office urinalysis results reviewed with the patient today 2+ microscopic hematuria. She denies any previous history of workplace chemical exposure and or nicotine dependence. We discussed potential causes of microscopic hematuria. She denies gross/visible hematuria, dysuria, foul smelling urine, changes to urinary stream, flank pain, fever, and or chills. PVR 44 mL. Plan A sleep study has been ordered to assess the potential for sleep apnea, given nocturnal frequency and associated symptoms like snoring and daytime fatigue. The patient?s urine will be cultured to exclude infection. Referrals for gynecological evaluation of hydrometra are initiated to assess any influence on urinary symptoms. Observation will occur regarding the recurrence or persistence of microscopic hematuria, taking into consideration the absence of significant associated symptoms or risk factors such as smoking history. Patient was informed and verbally consented to the use of an ambient scribe for clinic note documentation during this visit. Discussion Notes During the consultation, we discussed the potential causes of nocturnal urinary frequency and exploration of underlying sleep apnea through a sleep study. The implications and necessity of regular fluid restrictions were addressed, alongside the chronic impact of the prescribed diuretic. As the conversation further progressed, the CAT scan results, indicating the presence of hydrometra, were reviewed. We acknowledged the necessity of visiting a parole agent for further investigation of its potential impact on urinary symptoms. Urine analysis was elaborated upon regarding the present microscopic hematuria, I explained the importance of pursuing the outlined diagnostic studies to conclusively address her complaints. The patient was advised of the upcoming calls for sleep study appointments and potential referral follow-up. She was assured of being informed regarding any need for intervention contingent upon the diagnostic outcomes. [facility] Medical History COVID-19 vaccine administered History of urinary urgency Depression Asthma Hx of cardiac murmur Elevated cholesterol HTN (hypertension) Surgical History Hx of dilation and curettage Hx of tubal ligation History of pubovaginal sling H/O colonoscopy Social History Household Members: Family Housing: House Are you a primary caregiver services home to a significant other at home: No Do you presently have visiting nurse or other home services: No Patient Tobacco Use Status: Never used Tobacco e-Cigarette/Vaping Use: Never Used Second Hand Smoke Exposure: Yes service: No Current occupational status: retired Cognitive needs: No Hearing needs: No Vision needs: No Review of Systems Const All systems reviewed & are unremarkable except as noted in HPI and below Physical Exam Const General: cooperative, healthy appearing, comfortable, no acute distress, well developed, alert and awake Nutritional Appearance: overweight Orientation/consciousness: patient oriented x3 Limitations: no limitations HEENT Head: Yes normal to inspection, Yes normocephalic and Yes atraumatic Ears: hearing grossly normal bilaterally Eyes General: appearance normal, both eyes and all related structures Neck Neck: Yes normal visual inspection and Yes trachea midline Chest Chest palpation & inspection: normal inspection of the chest Resp Effort & Inspection: normal respiratory effort and able to speak in complete sentences Cardio Rate: regular rate GI Inspection: Yes normal to inspection General: Yes no CVA tenderness Back/Spine/Pelvis Back: no CVA tenderness Skin General skin exam: no rashes or lesions noted Neuro General: patient oriented x3 Extrem General: Yes normal to inspection Psych Appearance: grossly normal and well kempt Mental Status: mental status grossly normal Speech and movement: Normal speech and movement present and Clear speech present Affect: normal affect Attitude: cooperative Thought process: Normal thought process present Thought content: Normal thought content present Insight: Fair insight present (Psych) Judgement: Fair judgement present (Psych) Office Procedures Post Void Residual Post Residual Void Post Void Residual (PVR): 44 51891-Uhyv Void Residual by ultrasound Results AMB Urinalysis, Automated UA Leukoctes 125 Susy/uL Last Edit by RAFI Angel on 02/23/25 15:14 UA Nitrite Negative Last Edit by Lorena Amaya [facility] on 02/23/25 15:14 UA Urobilinogen 0.2 mg/dL Last Edit by Lorena Amaya [facility] on 02/23/25 15:1 4 UA Protein 0 mg/dL Last Edit by Lorena Amaya [facility] on 02/23/25 15:14 UA pH 5.5 Last Edit by Lorena Amaya [facility] on 02/23/25 15:14 UA Blood 80 Raimundo/uL Last Edit by Yoelsamuel Krishnasenia [facility] on 02/23/25 15:14 UA Specific [place] 1.020 Last Edit by Lorena Amaya, [facility] on 02/23/25 15: 14 UA Ketone Last Edit by Lorena Amaya, [facility] on 02/23/25 15:14 UA Bilirubin 0 mg/dL Last Edit by Lorena Amaya, [facility] on 02/23/25 15:14 UA Glucose 0 mg/dL Last Edit by Lorena Amaya [facility] on 02/23/25 15:14 Results Reviewed Results Reviewed: Laboratory Last Values Urine pH (Auto) 5.5 02/23/25 14:48 Specific [place] (Auto) 1.020 02/23/25 14:48 Urine Protein (Auto) 0 mg/dL 02/23/25 14:48 Glucose (UA)(Auto) 0 mg/dL 02/23/25 14:48 Urine Blood (Auto) 80 Raimundo/uL 02/23/25 14:48 Urine Nitrite (Auto) Negative 02/23/25 14:48 Urine Bilirubin (Auto) 0 mg/dL 02/23/25 14:48 Urine Urobilinogen (Auto) 0.2 mg/dL 02/23/25 14:48 Leukocyte Esterase (Auto) 125 Susy/uL 02/23/25 14:48 Date of Service: 12/31/24 Procedure(s): CT abdomen pelvis w IV con Findings: The lung bases are clear. Unremarkable gallbladder and solid organs. No urolithiasis. No bowel obstruction, pneumoperitoneum, or pneumatosis. 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 Pelvic contents are otherwise unremarkable. Normal appendix. The bones are intact. 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 Recommend gynecological consultation for follow-up. -- Date of Service: 12/21/24 Procedure(s): US retroperitoneal comp Findings: Right kidney normal size and echotexture, 11.5 cm length. No hydronephrosis. Normal color flow. No nephrolithiasis or renal masses. Left kidney normal size and echotexture, 10.9 cm in length. No hydronephrosis. Normal color flow. Indeterminate hypoechoic lesion upper pole left kidney measuring 2.0 x 1.5 x 1.4 cm Urinary bladder demonstrates a thin internal septation of unknown clinical significance. Prevoid volume 262.0 mL. Postvoid volume 111 mL. Ureteral jets are visualized bilaterally Impression: 1. Indeterminate hypoechoic lesion upper pole left kidney measuring 2.0 x 1.5 x 1.4 cm. Correlate with a contrast-enhanced CT or MRI. 2. Elevated postvoid residual. 3. Internal thin septation within the lumen of the urinary bladder of uncertain clinical significance can be correlated with cystoscopy. 4. Postmenopausal uterine atrophy. Markedly thickened endometrium correlate with pelvic sonogram. Assessment & Plan Assessment & Plan (1) Nocturia: Code(s): R35.1 - Nocturia Category: Medical (2) Snoring: Code(s): R06.83 - Snoring Category: Medical (3) Microscopic hematuria: Code(s): R31.29 - Other microscopic hematuria Category: Medical (4) Lower urinary tract symptoms: Code(s): R39.9 - Unspecified symptoms and signs involving the genitourinary system Category: Medical Plan In office urinalysis results reviewed with the patient today; as noted above; will send for urine cytology as well as urine culture We discussed potential causes of lower urinary tract symptoms patient is experiencing as well as further treatment options and risks and benefits of these treatment options. PVR 44 mL. Will obtain sleep study for further assessment evaluation. We discussed importance of limiting fluids 2-3 hours prior to bed to decrease episodes of nocturia. We also discussed healthy bathroom behaviors as well as importance of sleep hygiene. All questions were answered. Recent CT results reviewed with the patient today; as noted above. We discussed bladder triggers/irritants We discussed potential causes of microscopic hematuria. We also discussed potential near future in office cystoscopy and or urodynamics for further assessment evaluation Recent retroperitoneal ultrasound results reviewed with the patient today; as noted above. Follow-up in 1-4 months with sleep study to be completed prior; or sooner with any issues, concerns, and or questions. Orders: Orders AMB Post Void Residual by ultrasound Today N39.0 - Urinary tract infection, site not specified Urine Culture Today R31.29 - Other microscopic hematuria AMB Urinalysis Automated Today Z13.9 - Encounter for screening, unspecified RT home sleep study Today R06.83 - Snoring, R35.1 - Nocturia Urine Cytology Today R31.29 - Other microscopic hematuria Referrals MATCHER OFFBEARER Referral N85.8 - Other specified noninflammatory disorders of uterus Patient Instructions: The patient had an opportunity to ask questions regarding the treatment plan. All questions were answered. Physical exam, labs, and imaging were discussed and reviewed in detail. As well as risks, benefits, and discussion of treatment choices. No major barriers to understanding were identified. The patient expressed understanding and agreement with the above treatment plan. The patient was made aware they should contact our office by phone for worsening of their current condition, the appearance of new symptoms, or with any questions or concerns. Compliance is encouraged with any medications and follow up testing that is ordered. It is a privilege to be allowed the opportunity to participate in? your urological care.? Again, if you have any questions or concerns If you have any questions or concerns please do not hesitate to contact me. The office is [phone]. This note is constructed using voice recognition software. While every effort has been made to ensure accuracy chief nuclear medicine technologist errors may have been included. Yours sincerely, KHANH Harris- Coding Level of Care Code New Pt Level 4 (95562) Diagnoses Nocturia R35.1 Snoring R06.83 Microscopic hematuria R31.29 Lower urinary tract symptoms R39.9 CPT Codes Post Residual Void - PVR CPT Code: 01527-Vnst Void Residual by ultrasound ([id number]) Time Spent (min) 35
== END 2025-02-23 15:40 | disposition home or self-care (01) ==
LOC: HO.HUSH 14:22
PROVIDERS: PCP Nurse Practitioner Family; Visit Provider Nurse Practitioner Family
DX: R35.1 Nocturia (principal); R06.83 Snoring; R31.29 Other microscopic hematuria; R39.9 Unspecified symptoms and signs involving the genitourinary system; Z13.9 Encounter for screening, unspecified
CPT/HCPCS: 99204

== ENCOUNTER 2025-02-23 16:24 | Outpatient (REF) | payer MEDICARE, SELFPAY ==
[2025-02-23 17:33] LABS: Urine Cytology See Pathology rpt
== END 2025-02-23 16:25 | disposition home or self-care (01) ==
LOC: HO.LNP 16:24
PROVIDERS: Visit Provider Nurse Practitioner Family
DX: Z13.89 Encounter for screening for other disorder (principal)
CPT/HCPCS: 87086

== ENCOUNTER 2025-03-05 10:17 | Outpatient (AMB) | payer MEDICARE, SELFPAY ==
--- OUTSIDE RECORDS SUMMARY | 2025-03-05 10:34 | XMS_ITS | Patient Health Record ---
Author Organization [facility] Address [address] [place] [address] Care Team Providers Care Transition Mgr Rn Name Role Phone PEGGY HENNESSY Primary Care Provider Deion Waggoner Jr Unavailable [phone] Allergies Allergen (clinical drug ingredient) Drug/Non Drug [...] Problem Status W/U Status Risk Notes Problem [id number] Special screenin g for malignant neoplasms, colon (Z12.11) Active confirmed Problem [id number] Encounter for other preprocedural examination (Z01.818) Active confirmed Plan Of Treatment Future Test Test Name Order Date COLONOSCOPY 05/18/2015 COLONOSCOPY 02/02/2021 Insurance Providers Payer Name Payer Address Payer Phone Subscriber Number Group Number Insured Name Patient Relationship to Insured Coverage Start Date Coverage End Date [facility] [address] [place], [place] [id number] AGNIE KENDRICK Self - patient is the insured Medical (General) History Medical History History ICD Code colonoscopy 07/31, negative for polyps, previous history of tubular adenoma, five-year followup for family history history of iron deficiency anemia Denies MA,DM,CVA,Lung disease,renal dise ase hypertension anxiety Surgical History Surgery Date(Month/Year) tubal ligation bladder sling surgery
--- NOTE | 2025-03-05 10:36 | MHC.OFFVIS ---
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 Patient was referred by Be Radford of [facility] Adult primary care Fadi 11/25/24. Patient has a history of moderate osteoarthritis in the left hip. States pain started about 3-4 yrs and has worsen since she started to take STATINS. She does recall falling about 3 years but is not sure if she hurt her hip. Denies numbness or tingling in toes. Bone density done. Accompanied by: July Daughter in law Allergies atorvastatin (ATORVASTATIN) Adverse Reaction (Intermediate, Verified 03/05/25 10:38) myalgias / cough Medication List - Last Reconciled 03/05/25 by Marina Birmingham MD amlodipine-olmesartan 5-40 mg 1 tab PO DAILY hydrochlorothiazide 12.5 mg PO DAILY pitavastatin calcium (Livalo) 1 mg PO QPM 30 days HPI Comments Details: Getting in/out of car or seat is difficult, especially lower seats. Denies groin pain. But sometimes has back pain, usually with gardening, pulling from the back type of sensation. No numbness on left leg. No symptoms on right. Noted leg length discrepancy. Can't reach all the way down to left foot. Sits on shower chair. She does have grab bars in toilet. Has contraption for putting on sock. No PT or injections recently. [facility] Medical History COVID-19 vaccine administered History of urinary urgency Depression Asthma Hx of cardiac murmur Elevated cholesterol HTN (hypertension) Surgical History Hx of dilation and curettage Hx of tubal ligation History of pubovaginal sling H/O colonoscopy Social History Household Members: Family Housing: House Are you a primary insurance healthcare representative to a significant other at home: No Do you presently have visiting nurse or other home services: No Patient Tobacco Use Status: Never used Tobacco e-Cigarette/Vaping Use: Never Used Second Hand Smoke Exposure: Yes service: No Current occupational status: retired Cognitive needs: No Hearing needs: No Vision needs: No Review of Systems Const All systems reviewed & are unremarkable except as noted in HPI and below Physical Exam Constitutional: Patient appears to be in no acute distress, well nourished and well developed. Patient was appropriately conversant and oriented. Good historian. MSK: Poor balance. She walks with left knee on flexed position, almost like she has an acquired leg length discrepancy. However true leg length measurements, coming from umbilicus to medial malleolus, was equal bilaterally. No pain with palpation over the lumbar area. SI joint nontender. Slightly tender on left GT. Left hip range of motion limited with abduction and flexion. Straight-leg raising test negative. FABERE test left positive groin pain. Neurological: Weakness with left hip flexion 4-/5. Knee extension and dorsiflexion still strong 5/5. Vivas?s negative bilaterally. Babinski was down going bilaterally. Clonus was negative. Gait is antalgic without loss of balance. Results Reviewed Results Reviewed: Ordering Physician: Be Radford Results: Date of Service: 02/23/25 Follow Up: Procedure(s): XR DEXA axial skeleton Accession Number(s): [id number] cc: Be Radford~ EXAMINATION: DXA BONE DENSITY AXIAL HISTORY: M85.80 - Other specified disorders of bone density and structure, unspecified... TECHNIQUE: [facility] Dual energy absorptiometry (DEXA) of the lumbar spine, total left hip, and femoral neck was performed. COMPARISON: Comparison is made with the prior examination dated 02/21/2023. FINDINGS: The bone mineral density of the lumbar spine is 1.117, corresponding to a T-score of -0.5, and a Z-score of 0.5. This is indicative of normal bone mineral density. This represents a BMD change of 4.2% compared to the prior exam. This is statistically significant. The bone mineral density of the left total hip is 0.687, corresponding to a T-score of -2.5, and a Z-score of -1.5. This is indicative of osteoporosis. This represents a BMD change of -14.0% compared to the prior exam. This is statistically significant. The bone mineral density of the left femoral neck is 0.818, corresponding to a T-score of -1.6, and a Z-score of -0.2. This is indicative of osteopenia. This represents a BMD change of 9.8% compared to the prior exam. FRACTURE RISK: The FRAX index suggests a ten year probability of major osteoporotic fracture of 10.3%, and of hip fracture 1.7%. MM/XR DEXA axial skeleton IMPRESSION: Based on bone mineral density, and according to World Health Organization (WHO) criteria, the diagnosis is consistent with osteoporosis. All bone density values are in grams per centimeter squared (g/cm2). Statistically, 68% of repeat scans fall within 1 SD (+/- 0.010 g/cm2 for AP spine L1-L4) and 1 SD (+/- 0.012 g/cm2 for femur total) FRAX is a trademark of the [employer]'s [place] for Metabolic Bone Disease, a World Health Organization (WHO) Collaborating Center. Electronically signed by: Farzad Serra MD 02/23/2025 12:43 PM EDT Ordering Physician: Be Radford Date of Service: 05/07/24 Procedure(s): XR femur LT 2V Accession Number(s): [id number] cc: Be Radford~ EXAMINATION: XR FEMUR, LEFT CLINICAL INFORMATION: Left thigh pain. COMPARISON: None available. TECHNIQUE: AP and lateral views of the left femur were obtained. FINDINGS: There is moderate cephalad joint space narrowing of the left hip with marginal osteophytes and subchondral sclerosis. Bones are osteopenic. No fractures. Mild osteoarthritis is noted in the left SI joint. Imaged portion of the left knee joint is unremarkable. No acute soft tissue findings. XR/XR femur LT 2V IMPRESSION: Moderate osteoarthritis in the left hip. No acute osseous findings. Electronically signed by: Catracho Olvera MD 06/01/2024 05:12 PM EDT I reviewed records from the following: PCP Assessment & Plan Assessment & Plan (1) Weakness of left hip: Code(s): R29.898 - Other symptoms and signs involving the musculoskeletal system Category: Medical (2) Degenerative joint disease of left hip: Code(s): M16.12 - Unilateral primary osteoarthritis, left hip Category: Medical Qualifiers: Osteoarthritis type: primary Qualified Code(s): M16.12 - Unilateral primary osteoarthritis, left hip (3) Acquired leg length discrepancy: Code(s): M21.70 - Unequal limb length (acquired), unspecified site Category: Medical Plan Left hip osteoarthritis, with underlying osteoporosis. Manifesting as acquired leg length discrepancy. Poor gait and balance. Fall risk. Suggested physical therapy but patient is unable to leave the house by her own to go to appointments. Therefore referring her to home PT/VNA instead. She is willing to do exercises in her home at least but I also cautioned her against falls. Keep active. Continue to walk for exercise. Offered referral to Dr. Johnson for consideration of hip replacement. Patient defers. Assessment and plan discussed with patient, and patient was agreeable. All questions were answered thoroughly. Follow up 3 months. Marina Birmingham MD, NORMAN Board Certified, [place] Board [employer] Medicine and Rehabilitation (ABPMR) Board Certified, [place] [employer] Electrodiagnostic Medicine (ABEM) Orders: Referrals Home Health Referral M16.12 - Unilateral primary osteoarthritis, left hip, M21.70 - Unequal limb length (acquired), unspecified site, R29.898 - Other symptoms and signs involving the musculoskeletal system Coding Level of Care Code New Pt Level 4 (41527) Diagnoses Weakness of left hip R29.898 Primary osteoarthritis of left hip M16.12 Osteoarthritis type: primary Acquired leg length discrepancy M21.70
== END 2025-03-05 12:46 | disposition home or self-care (01) ==
LOC: HO.HOS 10:18
PROVIDERS: PCP Nurse Practitioner Family; Visit Provider Physical Medicine & Rehabilitation
DX: R29.898 Other symptoms and signs involving the musculoskeletal system (principal); M16.12 Unilateral primary osteoarthritis, left hip; M21.752 Unequal limb length (acquired), left femur
CPT/HCPCS: 99204

== ENCOUNTER → 2025-03-05 10:17 | Outpatient (BNVA) | payer MEDICARE, SELFPAY | PROVIDERS: PCP Nurse Practitioner Family; Visit Provider Physical Medicine & Rehabilitation | DX: M16.12 Unilateral primary osteoarthritis, left hip (principal); M21.70 Unequal limb length (acquired), unspecified site; R29.898 Other symptoms and signs involving the musculoskeletal system | CPT/HCPCS: 99202 ==

== ENCOUNTER 2025-03-31 12:51 | Outpatient (AMB) | payer MEDICARE, SELFPAY ==
[2025-03-31 12:58] VITALS: BP 150/90; PULSE 70; RESP 16; TEMP 36.9; O2SAT 95; BMI 33.1
--- NOTE | 2025-03-31 12:58 | MHC.PC.OV ---
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 Accompanied by: daughter in law Allergies atorvastatin (ATORVASTATIN) Adverse Reaction (Intermediate, Verified 03/31/25 13:00) myalgias / cough Tobacco use date assessed: 11/25/24 Fall risk assessment: No Falls in past year Last assessed Fall Risk: 03/31/25 Dental Screening Dental Screen Date: 03/31/25 Did you have a dental visit in the last 12 months?: Yes Did you have a dental problem in the last 6 months where you did not have access to dental care?: No Was dental information given to patient?: Patient has dentist PFS Medical History COVID-19 vaccine administered History of urinary urgency Depression Asthma Hx of cardiac murmur Elevated cholesterol HTN (hypertension) Surgical History Hx of dilation and curettage Hx of tubal ligation History of pubovaginal sling H/O colonoscopy Social History Household Members: Family Housing: House Are you a primary care manager to a significant other at home: No Do you presently have visiting nurse or other home services: No Patient Tobacco Use Status: Never used Tobacco e-Cigarette/Vaping Use: Never Used Second Hand Smoke Exposure: Yes service: No Current occupational status: retired Cognitive needs: No Hearing needs: No Vision needs: No Questionnaire PHQ-9 Over the last 2 weeks, how often have you been bothered by any of the following problems? 1. Little interest or pleasure in doing things: several days 2. Feeling down, depressed, or hopeless: several days 3. Trouble falling or staying asleep, or sleeping too much: not at all 4. Feeling tired or having little energy: not at all 5. Poor appetite or overeating: not at all 6. Feeling bad about yourself - or that you are a failure or have let yourself or your family down: not at all 7. Trouble concentrating on things, such as reading the newspaper or watching television: not at all 8. Moving or speaking so slowly that other people could have noticed. Or the opposite - being so fidgety or restless that you have been moving around a lot more than usual: not at all 9. Thoughts that you would be better off or of hurting yourself in some way: not at all Total score: 2 Depression Screening Interpretation: Negative Depression Screening Done: Yes 33192 - PHQ-9 Billing: Yes Source: Developed by Drs. Farzad Gamboa, Zulema Gray, Fabricio Alexander and colleagues, with an educational dung from [employer]. Thrive Questionnaire Date Thrive assessed: 11/25/24 I am a: Patient What is your living situation today?: I have a steady place to live Within the past 12 months, did the food you bought not last and you didn't have the money to get more?: I choose not to answer this question Within the past 12 months, did you worry whether your food would run out before you got money to buy more?: I choose not to answer this question Do you have trouble paying for medicines?: No Do you have trouble getting transportation to medical appointments?: No Do you have trouble paying your heating and electricity bill?: No Do you have trouble taking care of your child, family member or friend?: No Do you have trouble with day-to-day activities such as bathing, preparing meals, shopping, managing finances, etc.?: No Are you currently unemployed and looking for a job?: No Are you interested in more education?: No Please select the resources that you would like help with: Transportation Currently or been in a relationship where the following occur: No concerns reported THRIVE Score: 0 KARTHIK-7 AMB Questionnaire KARTHIK-7 Date KARTHIK - 7 assessed: 03/31/25 Feeling nervous, anxious, or on edge: 1 = Several days Not being able to stop or control worryin = Several days Worrying too much about different things: 1 = Several days Trouble relaxin = Several days Being so restless that it is hard to sit still: 0 = Not at all Becoming easily annoyed or irritable: 0 = Not at all Feeling afraid as if something awful might happen: 0 = Not at all Total KARTHIK-7 score (0-4 normal; 5-9 mild; 10-14 moderate; 15-21 severe): 4 Source: Developed by Drs. Farzad Gamboa, Zulema Gray, Fabricio Alexander and colleagues, with an educational dung from [employer]. KARTHIK-7 Assessment Billing KARTHIK-7 Assessment Tool: KARTHIK-7 Assessment 82473 Physical exam (Primary Care) Tobacco/Smoking Status: Tobacco use Status Tobacco use date assessed 11/25/24 11/25/24 10:39 Patient Tobacco Use Status Never used Tobacco 11/25/24 10:39 e-Cigarette/Vaping Use Never Used 11/25/24 10:39 Depression Screening Interpretation: Negative Thrive Assessment: Date of Thrive Assessment Date Thrive assessed 11/25/24 03/26/25 14:58 Currently or been in a relationship where the following occur: No concerns reported Coding Additional Codes PHQ-9 - 69114 - PHQ-9 Billing: Yes ([id number]) KARTHIK-7 Assessment Billing - KARTHIK-7 Assessment Tool: KARTHIK-7 Assessment 55181 ([id number])
--- NOTE | 2025-03-31 13:20 | A.OFFVIS_ITS ---
Intake Vital Signs 03/31/25 12:58 Height 5 ft 3.5 in Weight 190 lb BMI 33.1 BP 150/90 H Blood Pressure Location Rt brachial Position Sitting Respiration 16 Pulse 70 Pulse Source Pulse Oximeter Temp 98.5 F Temp Source Oral Pulse Oximetry (%) 95 Oxygen Delivery Method Room Air Intake Visit Reasons: SWV G0439 Allergies atorvastatin (ATORVASTATIN) Adverse Reaction (Intermediate, Verified 03/31/25 13:00) myalgias / cough Medication List - Last Reconciled 03/31/25 by KHANH Cross-GM amlodipine-olmesartan 5-40 mg 1 tab PO DAILY hydrochlorothiazide 12.5 mg PO DAILY pitavastatin calcium (Livalo) 1 mg PO QPM 30 days HPI SWV G0439 HPI Details AWV: PPP in scan pile, CCC not filled out [facility] Medical History COVID-19 vaccine administered History of urinary urgency Depression Asthma Hx of cardiac murmur Elevated cholesterol HTN (hypertension) Surgical History Hx of dilation and curettage Hx of tubal ligation History of pubovaginal sling H/O colonoscopy Social History Household Members: Family Housing: House Are you a primary hiv/aids care nurse to a significant other at home: No Do you presently have visiting nurse or other home services: No Patient Tobacco Use Status: Never used Tobacco e-Cigarette/Vaping Use: Never Used Second Hand Smoke Exposure: Yes service: No Current occupational status: retired Cognitive needs: No Hearing needs: No Vision needs: No Questionnaire Medicare Wellness Checkup [age] What gender do you identify with?: female During the past 4 weeks, how much have you been bothered by emotional problems such as feeling anxious, depressed, irritable, sad or downhearted, and blue?: slightly During the past 4 weeks, has your physical & emotional health limited your socia l activities with family, friends, neighbors, or groups?: not at all During the past 4 weeks, how much bodily pain have you generally had?: very mild pain During the past 4 weeks, was someone available to help you if you needed & wanted help?: yes, some During the past 4 weeks, what was the hardest physical activity you could do for at least 2 minutes?: heavy Can you get to places out of walking distance without help? (For eg., can you travel alone on buses, taxis or drive your car?): Yes Can you go shopping for groceries or clothes without someone's help?: Yes Can you prepare your own meals?: Yes Can you do your housework without help?: Yes Because of any health problems, do you need the help of another person with your personal care needs such as eating, bathing, dressing or getting around the h ouse?: No Can you handle your own money without help?: Yes During the past 4 weeks, how would you rate your health in general?: good During the past 4 weeks how have things been going for you?: good & bad parts about equal Are you having difficulties driving your car?: no Do you always fasten your seat belt when you are in a car?: yes, usually During past 4 weeks, have you been bothered by the following: never: Falling or dizzy when standing up and Problems using the telephone?, sometimes: Trouble eating well?, Teeth or denture problems? and Tiredness or fatigue? and always: Sexual problems? Have you fallen 2 or more times in the past year?: No Are you afraid of falling?: No Are you a smoker?: no During the past 4 weeks, how many drinks of wine, beer, or other alcoholic beverages did you have?: no alcohol at all Do you exercise for about 20 minutes 3 or more times a week?: yes, some of the time Have you been given information to help with the following?: yes: Hazards in your house that might hurt you? and no: Keeping track of your medications? How often do you have trouble taking medicines the way you have been told to take them?: sometimes I take medicine as prescribed How confident are you that you can control & manage most of your health pro blems?: somewhat confident What is your race?: White Mini Mental State Exam (MMSE) Orientation What is the (year) (season) (date) (day) (month)?: year, season, date, day and month Where are we (state) (county) (town or city) (hospital) (floor)?: state, county, town or city, hospital/clinic and floor Registration Name of 3 unrelated objects clearly and slowly, then ask patient to repeat all 3 of them. (1st repeat determines score. Make sure they can repeat all three): object 1, object 2 and object 3 Attention & Calculation (CHOOSE ONE) Spell WORLD backwards (DLROW): 5 letters Recall Ask patient to repeat the 3 items from question #3.: object 1, object 2 and object 3 Language Show patient a wristwatch & ask what it is. Repeat for pencil.: watch and pencil Ask the patient to repeat the phrase 'No ifs, ands, or buts' after you.: correct Ask the patient to 'take a piece of paper with their right hand' 'fold paper in half' 'place paper on floor': take paper in right hand, fold paper in half and place paper on floor Print the sentence 'CLOSE YOUR EYES' on a piece. If patient actually closes eyes then score.: followed written direction Give patient a blank piece of paper & ask to write a sentence. Score if it contains a noun & verb.: sentence contains subject and verb Ask patient to copy figure of intersecting pentagons exactly. Score if all 10 a ngles & 2 intersects are included.: all 10 angles present & 2 are intersected Score Score: 30 Activity of Daily Living Bathing - sponge bath, tub bath or shower: receives no assistance (gets in/out by self, if usual bathing means Dressing - getting clothes from closets & drawers, including inner/outer garments & fasteners.: gets clothes & gets completely dressed without help Toileting - going to the 'toilet room' for urine/bowel elimination & cleaning self/arranging clothes: goes to toilet room, cleans self, arranges clothes without help Transfer: moves in & out of bed and chair without help (may use support object) Continence: controls urination/bowel movements completely by self Feeding: feeds self without help Total Score: 0 Information obtained from: patient Using telephone: independent Traveling: independent Shopping: independent Preparing meals: independent Housework: independent Taking medicine: independent Managing money: independent PHQ-9 Over the last 2 weeks, how often have you been bothered by any of the following problems? 1. Little interest or pleasure in doing things: several days 2. Feeling down, depressed, or hopeless: several days 3. Trouble falling or staying asleep, or sleeping too much: not at all 4. Feeling tired or having little energy: not at all 5. Poor appetite or overeating: not at all 6. Feeling bad about yourself - or that you are a failure or have let yourself or your family down: not at all 7. Trouble concentrating on things, such as reading the newspaper or watching television: not at all 8. Moving or speaking so slowly that other people could have noticed. Or the opposite - being so fidgety or restless that you have been moving around a lot more than usual: not at all 9. Thoughts that you would be better off or of hurting yourself in some way: not at all Total score: 2 Depression Screening Interpretation: Negative Depression Screening Done: Yes 22151 - PHQ-9 Billing: Yes Source: Developed by Drs. Farzad Gamboa, Zulema Gray, Fabricio Alexander and colleagues, with an educational dung from [employer]. Physical Exam Vital Signs: Last Vital Signs Temp 98.5 F 03/31/25 12:58 Pulse 70 03/31/25 12:58 Resp 16 03/31/25 12:58 BP 150/90 H 03/31/25 12:58 Pulse Ox 95 03/31/25 12:58 Oxygen Delivery Method Room Air 03/31/25 12:58 BMI result Body Mass Index 33.1 Neuro Other: able to stand from sitting position. passed whisper test, difficulty with tandem walking, neg rhomberg Assessment & Plan Assessment & Plan (1) Encounter for subsequent annual wellness visit (AWV) in Medicare patient: Code(s): Z00.00 - Encounter for general adult medical examination without abnormal findings Plan . Medications: Refilled amlodipine-olmesartan 5-40 mg 1 tab PO DAILY 90 tabs 0RF amlodipine-olmesartan 5-40 mg 1 tab PO DAILY 90 tabs 0RF Quality Reporting (2019) Depression/Bipolar (159/160/161/177) PHQ-9: Total score: 2 Coding Level of Care Code Medicare Subsequent (G0439) Diagnoses Encounter for subsequent annual wellness visit (AWV) in Medicare patient Z00.00 Additional Codes PHQ-9 - 21914 - PHQ-9 Billing: Yes ([id number]) Advance Care Planning Forms completed: Health Care Proxy (already scanned), MOLST (form in scan pile) and Living will (this is performed.)
--- OUTSIDE RECORDS SUMMARY | 2025-03-31 13:44 | XMS_ITS | Patient Health Record ---
Author Organization [facility] Address [address] [place] [address] Care Team Providers Care Bushing And Broach Operator Name Role Phone PEGGY HENNESSY Primary [...] Problem Status W/U Status Risk Notes Problem [id number] Special screenin g for malignant neoplasms, colon (Z12.11) Active confirmed Problem [id number] Encounter for other preprocedural examination (Z01.818) Active confirmed Plan Of Treatment Future Test Test Name Order Date COLONOSCOPY 05/18/2015 COLONOSCOPY 02/02/2021 Insurance Providers Payer Name Payer Address Payer Phone Subscriber Number Group Number Insured Name Patient Relationship to Insured Coverage Start Date Coverage End Date [facility] [address] [place], [place] [id number] ANGIE KENDRICK Self - patient is the insured Medical (General) History Medical History History ICD Code colonoscopy 07/31, negative for polyps, previous history of tubular adenoma, five-year followup for family history history of iron deficiency anemia Denies [place],DM,CVA,Lung disease,renal dise ase hypertension anxiety Surgical History Surgery Date(Month/Year) tubal ligation bladder sling surgery
== END 2025-03-31 13:47 | disposition home or self-care (01) ==
LOC: HO.HMCC 12:52
PROVIDERS: PCP Nurse Practitioner Family; Visit Provider Nurse Practitioner Family
DX: Z00.00 Encounter for general adult medical examination without abnormal findings (principal)

== ENCOUNTER → 2025-03-31 12:51 | Outpatient (BNVA) | payer MEDICARE, SELFPAY | PROVIDERS: PCP Nurse Practitioner Family; Visit Provider Nurse Practitioner Family | DX: Z00.00 Encounter for general adult medical examination without abnormal findings (principal) | CPT/HCPCS: 96127 ==

== ENCOUNTER 2025-04-21 12:59 | Outpatient (REF) | payer MEDICARE, SELFPAY ==
--- NOTE | ~2025-04-21 | MM_ITS ---
EXAMINATION: MM DIAGNOSTIC DIGITAL BREAST TOMOSYNTHESIS, RIGHT Limited right breast ultrasound. CLINICAL INFORMATION: Call back from screening for focal asymmetry in the central to slightly upper outer right breast. COMPARISON: Mammography: Priors on PACS. TECHNIQUE: Digital breast tomosynthesis is performed in both the craniocaudal and mediolateral oblique views along with computer-aided detection (CAD). Synthesized 2D images are generated from the tomosynthesis. FINDINGS: There are scattered areas of fibroglandular density (ACR BI-RADS breast composition Category b). Previously seen focal asymmetry in the central outer upper outer right breast does not persist on additional imaging projections and likely represented overlapping breast tissue. There are no significant masses, abnormal calcifications, or other abnormalities. Targeted color Doppler ultrasound scanning from 7-11 o'clock demonstrates normal fibroglandular breast tissue. There is no sonographic abnormal finding. MM/MM tomosynthesis added views R IMPRESSION: No mammographic evidence of malignancy. ASSESSMENT: BI-RADS BI-RADS 1 - Negative RECOMMENDATION: 1 year F/U Results were provided to the patient at time of visit by the technologist. This patient's information was entered into a reminder system with a target due date for their next mammogram. Electronically signed by: Laura Zhou DO 04/21/2025 02:07 PM EDT
--- OUTSIDE RECORDS SUMMARY | 2025-04-21 13:35 | XMS_ITS | Patient Health Record ---
Author Organization [facility] Address [address] [place] [address] Care Team Providers Care Napping Machine Operator Name Role Phone PEGGY HENNESSY [...] Problem Status W/U Status Risk Notes Problem [id number] Special screenin g for malignant neoplasms, colon (Z12.11) Active confirmed Problem [id number] Encounter for other preprocedural examination (Z01.818) Active confirmed Plan Of Treatment Future Test Test Name Order Date COLONOSCOPY 05/18/2015 COLONOSCOPY 02/02/2021 Insurance Providers Payer Name Payer Address Payer Phone Subscriber Number Group Number Insured Name Patient Relationship to Insured Coverage Start Date Coverage End Date [facility] [address] [place], [place] [id number] ANGIE KENDRICK Self - patient is the insured Medical (General) History Medical History History ICD Code colonoscopy 07/31, negative for polyps, previous history of tubular adenoma, five-year followup for family history history of iron deficiency anemia Denies [place],DM,CVA,Lung disease,renal dise ase hypertension anxiety Surgical History Surgery Date(Month/Year) tubal ligation bladder sling surgery
== END 2025-04-21 13:00 | disposition home or self-care (01) ==
LOC: HO.MAMMO 12:59
PROVIDERS: PCP Nurse Practitioner Family; Visit Provider Nurse Practitioner Family
DX: N64.89 Other specified disorders of breast (principal)
CPT/HCPCS: 76642; 77061; 77065

== ENCOUNTER → 2025-04-21 13:30 | Outpatient (BNV) | payer MEDICARE, SELFPAY | PROVIDERS: PCP Nurse Practitioner Family; Visit Provider Internal Medicine | DX: R92.8 Other abnormal and inconclusive findings on diagnostic imaging of breast (principal) | CPT/HCPCS: 76642; 77065; G0279 ==

== ENCOUNTER 2025-06-10 10:51 | Outpatient (AMB) | payer MEDICARE, SELFPAY ==
--- NOTE | 2025-06-10 10:57 | MHC.OFFVIS ---
Vital Signs 06/10/25 11:02 Height 5 ft 2 in Weight 187 lb BMI 34.2 Intake Visit Reasons: OV F/u Pain left thigh Intake Note: Monalisa is a 74 year old female who presents today as a follow up for pain in her left thigh. At last visit on 03/05/25 we referred her to home health. At today's visit she states that she has stopped her at home exercises due to the pain. She states that lifting the left leg caused her discomfort and she stated that she needed to stop. Patient states that she would like to add that she is a active [place] and has to walk up a hill with a incline. She uses her stool to help relieve the left thigh pain. She added that after discussing with her family she would like to discuss surgery options for next year with [facility] for her left hip. Allergies Seasonal Allergies Allergy (Mild, Verified 06/10/25 11:03) Runny Nose atorvastatin (ATORVASTATIN) Adverse Reaction (Intermediate, Verified 03/31/25 13:00) myalgias / cough HPI Comments Details: Getting in/out of car or seat is difficult, especially lower seats. Left proximal thigh and groin area. Denies axial lower back pain unless she has been standing for long time. No numbness on left leg. No symptoms on right. Noted leg length discrepancy. Can't reach all the way down to left foot. Sits on shower chair. She does have grab bars in toilet. Has contraption for putting on sock. She mentions that she is waiting to see photo machine operator for a cyst. [facility] Medical History COVID-19 vaccine administered History of urinary urgency Depression Asthma Hx of cardiac murmur Elevated cholesterol HTN (hypertension) Surgical History Hx of dilation and curettage Hx of tubal ligation History of pubovaginal sling H/O colonoscopy Social History Household Members: Family Housing: House Are you a primary director of health care marketing to a significant other at home: No Do you presently have visiting nurse or other home services: No Patient Tobacco Use Status: Never used Tobacco e-Cigarette/Vaping Use: Never Used Second Hand Smoke Exposure: Yes service: No Current occupational status: retired Cognitive needs: No Hearing needs: No Vision needs: No Physical Exam Vital Signs: BMI result Body Mass Index 34.2 Constitutional: Patient appears to be in no acute distress, well nourished and well developed. Patient was appropriately conversant and oriented. Good historian. MSK: Balance improved since last visit. She walks with left knee on flexed position, almost like she has an acquired leg length discrepancy. However true leg length measurements, coming from umbilicus to medial malleolus, was equal bilaterally. No pain with palpation over the lumbar area. SI joint nontender. Slightly tender on left GT. Left hip range of motion limited with abduction and flexion. Straight-leg raising test negative. FABERE test left positive groin pain. Neurological: Weakness with left hip flexion 4-/5. Knee extension and dorsiflexion still strong 5/5. Babinski was down going bilaterally. Clonus was negative. Gait is antalgic without loss of balance. Results Reviewed Results Reviewed: EXAMINATION: XR FEMUR, LEFT CLINICAL INFORMATION: Left thigh pain. COMPARISON: None available. TECHNIQUE: AP and lateral views of the left femur were obtained. FINDINGS: There is moderate cephalad joint space narrowing of the left hip with marginal osteophytes and subchondral sclerosis. Bones are osteopenic. No fractures. Mild osteoarthritis is noted in the left SI joint. Imaged portion of the left knee joint is unremarkable. No acute soft tissue findings. XR/XR femur LT 2V IMPRESSION: Moderate osteoarthritis in the left hip. No acute osseous findings. Electronically signed by: Catracho Olvera MD 06/01/2024 05:12 PM EDT RP I reviewed records from the following: PCP Assessment & Plan Assessment & Plan (1) Degenerative joint disease of left hip: Code(s): M16.12 - Unilateral primary osteoarthritis, left hip Category: Medical Qualifiers: Osteoarthritis type: primary Qualified Code(s): M16.12 - Unilateral primary osteoarthritis, left hip (2) Weakness of left hip: Code(s): R29.898 - Other symptoms and signs involving the musculoskeletal system Category: Medical (3) Acquired leg length discrepancy: Code(s): M21.70 - Unequal limb length (acquired), unspecified site Category: Medical Plan Left hip osteoarthritis, with underlying osteoporosis. Manifesting as acquired leg length discrepancy. Gait and balance improved since last time I saw her. I do not think symptoms are coming from lumbar spine. SI joints are also nontender. No recent falls. She finished home PT. She is interested to meet Dr. Johnson for discussion of hip replacement. To be scheduled. We talked about continuing exercises at home, being mindful of rest breaks when she goes out to garden, being mindful of lifting. Assessment and plan discussed with patient, and patient was agreeable. All questions were answered thoroughly. Marina Birmingham MD, NORMAN Board Certified, [place] Board of Physical Medicine and Rehabilitation (ABPMR) Board Certified, [place] Board of Electrodiagnostic Medicine (ABEM) Coding Level of Care Code Est Pt Level 4 (36817) Diagnoses Primary osteoarthritis of left hip M16.12 Osteoarthritis type: primary Weakness of left hip R29.898 Acquired leg length discrepancy M21.70
[2025-06-10 11:02] VITALS: BMI 34.2
== END 2025-06-10 11:39 | disposition home or self-care (01) ==
LOC: HO.HOS 10:52
PROVIDERS: PCP Nurse Practitioner Family; Visit Provider Physical Medicine & Rehabilitation
DX: M16.12 Unilateral primary osteoarthritis, left hip (principal); R29.898 Other symptoms and signs involving the musculoskeletal system; M21.752 Unequal limb length (acquired), left femur
CPT/HCPCS: 99214

== ENCOUNTER → 2025-06-10 10:51 | Outpatient (BNVA) | payer MEDICARE, SELFPAY | PROVIDERS: PCP Nurse Practitioner Family; Visit Provider Physical Medicine & Rehabilitation | DX: M16.12 Unilateral primary osteoarthritis, left hip (principal); R29.898 Other symptoms and signs involving the musculoskeletal system; M81.0 Age-related osteoporosis without current pathological fracture | CPT/HCPCS: 99212 ==

== ENCOUNTER 2025-08-04 13:37 | Outpatient (AMB) | payer MEDICARE, SELFPAY ==
--- NOTE | 2025-08-04 13:55 | A.OFFVIS_ITS ---
Vital Signs 08/04/25 13:56 Height 5 ft 2 in Weight 187 lb BMI 34.2 BP 122/74 Intake Visit Reasons: Uterus disorder Accompanied by: Self / Same As Patient Allergies Seasonal Allergies Allergy (Mild, Verified 08/04/25 14:01) Runny Nose atorvastatin (ATORVASTATIN) Adverse Reaction (Intermediate, Verified 08/04/25 14:01) myalgias / cough Post menopausal: Yes HPI Comments Details: Presenting referred from PCP regarding abnormal imaging of the uterus. The patient has no symptoms no vaginal bleeding pelvic cramps or any other concerns. No history of abnormal Pap smear 01/08 retroperitoneal ultrasound showed abnormal thickening of the endometrium 01/08 CT scan of the uterus showed hydrometra PFSH Medical History COVID-19 vaccine administered History of urinary urgency Depression Asthma Hx of cardiac murmur Elevated cholesterol HTN (hypertension) Surgical History Hx of dilation and curettage Hx of tubal ligation History of pubovaginal sling H/O colonoscopy Social History Household Members: Family Housing: House Are you a primary resident care associate to a significant other at home: No Do you presently have visiting nurse or other home services: No Patient Tobacco Use Status: Never used Tobacco e-Cigarette/Vaping Use: Never Used Second Hand Smoke Exposure: Yes service: No Current occupational status: retired Cognitive needs: No Hearing needs: No Vision needs: No Review of Systems Const All systems reviewed & are unremarkable except as noted in HPI and below Physical Exam General: Yes no CVA tenderness External Female Exam: normal external appearance and normal appearance of the urethra Speculum Exam - Vagina: normal appearance of the vagina, normal palpation, no lesions and no masses Speculum Exam - Cervix: normal appearance of the cervix, normal palpation, no lesions, no masses and nontender Bimanual exam- vagina & uterus: normal bimanual exam, normal palpation, uterine size normal, normal palpation, uterine shape normal, No Cervical tenderness present and non-tender Bimanual Exam- Adnexa, other: normal adnexae Back/Spine/Pelvis Back: no CVA tenderness Assessment & Plan Assessment & Plan (1) Abnormal finding present on diagnostic imaging of uterus: Code(s): R93.89 - Abnormal findings on diagnostic imaging of other specified body structures Category: Medical Plan: Will order pelvic ultrasound. Instructions given the patient to schedule an ultrasound follow-up appointment within 2 weeks. All questions answered, the patient verbalized understanding. Orders: Orders US pelvic and transvaginal Today R93.89 - Abnormal findings on diagnostic imaging of other specified body structures Coding Level of Care Code New Pt Level 3 (20660) Diagnoses Abnormal finding present on diagnostic imaging of uterus R93.89
[2025-08-04 13:56] VITALS: BP 122/74; BMI 34.2
--- OUTSIDE RECORDS SUMMARY | 2025-08-05 01:39 | XMS_ITS | Patient Health Record ---
Author Organization [facility] Address [address] [place] [address] Care Team Providers Care Bed Bug Exterminator Name Role Phone PEGGY HENNESSY Primary Care Provider Deion Waggoner Jr Unavailable [phone] Allergies Allergen (clinical drug ingredient) Drug/Non Drug [...] at 5:00 p.m. the day before the procedure; Duration: 1 day 02/02/2021 Active Immunizations Vaccine Route Administration Date Status Comme nts Influenza Unknown 05/17/2020 Administered Social History Social History Additional Details Category Social Info Options Details Miscellaneous: Marital status: Occupation: works at a bank/ retired Problems Problem Type SNOMED Code ICD Code Onset Dates Problem Status W/U Status Risk Notes Problem Screening for malignant neoplasm of colon (409403537) Special screening for malignant neoplasms, colon (Z12.11) Active confirmed Problem Pre-procedure evaluation check (391617774) Encounter for other preprocedural examination (Z01.818) Active confirmed Plan Of Treatment Future Test Test Name Order Date COLONOSCOPY 05/18/2015 COLONOSCOPY 02/02/2021 Insurance Providers Payer Name Payer Address Payer Phone Subscriber Number Group Number Insured Name Patient Relationship to Insured Coverage Start Date Coverage End Date [facility] [address] [place], [place] [id number] [phone] [id number] ANGIE KENDRICK Self - patient is the insured Medical (General) History Medical History History ICD Code colonoscopy 07/31, negative for polyps, previous history of tubular adenoma, five-year followup for family history history of iron deficiency anemia Denies [place],DM,CVA,Lung disease,renal dise ase hypertension anxiety Surgical History Surgery Date(Month/Year) tubal ligation bladder sling surgery
== END 2025-08-04 15:23 | disposition home or self-care (01) ==
LOC: HO.HWS 13:39
PROVIDERS: PCP Nurse Practitioner Family; Visit Provider Obstetrics & Gynecology
DX: R93.89 Abnormal findings on diagnostic imaging of other specified body structures (principal)
CPT/HCPCS: 99203

== ENCOUNTER → 2025-08-04 13:37 | Outpatient (BNVA) | payer MEDICARE, SELFPAY | PROVIDERS: PCP Nurse Practitioner Family; Visit Provider Obstetrics & Gynecology | DX: R93.89 Abnormal findings on diagnostic imaging of other specified body structures (principal) | CPT/HCPCS: 99202 ==

== ENCOUNTER 2025-08-11 08:32 | Outpatient (REF) | payer MEDICARE, SELFPAY ==
--- NOTE | ~2025-08-11 | US_ITS ---
CLINICAL HISTORY: R93.89 - Abnormal findings on diagnostic imaging of other specified body... Ultrasound of the female pelvis Comparison: CT/SR - CT ABDOMEN PELVIS W IV CON - 12/31/24 14:22 EDT Technique: Grayscale ultrasound with assistance of color Doppler. Transabdominal scanning performed for overall anatomy. Transvaginal scanning performed for better anatomic delineation. Findings: Anteverted mildly atrophic uterus, measures 6.8 x 3.6 x 5.1 cm, mildly heterogeneous myometrium, no apparent mass is seen. Abnormal endometrium, diffusely thickened with solid and cystic components, 2.2 cm in thickness, the submitted Doppler images demonstrate no abnormal vascular flow of the endometrium. Minimally complex nabothian cysts with avascular thin septation at the cervix. Probable right ovary is only seen transabdominally, ovarian parenchyma details are difficult to see, measures 2.0 x 1.1 x 1.4 cm, no obvious lesion or abnormal vascular flow. Left ovary is not seen, left adnexa is mostly obscured by bowel gas. No free fluid. Impression: 1. Abnormal endometrial thickening with solid cystic components, indeterminate, malignancy needs to be excluded, recommend tissue sampling. 2. Nonvisualization of the left ovary. This document has been electronically signed by: Abida Hernandez MD on 08/11/2025 15:16:11
--- OUTSIDE RECORDS SUMMARY | 2025-08-11 08:57 | XMS_ITS | Patient Health Record ---
Author Organization [facility] Address [address] [place] [address] Care Team Providers Care Correctional Corporal Name Role Phone PEGGY HENNESSY Primary Care [...] Problem Screening for malignant neoplasm of colon (756663831) Special screening for malignant neoplasms, colon (Z12.11) Active confirmed Problem Pre-procedure evaluation check (542860919) Encounter for other preprocedural examination (Z01.818) Active confirmed Plan Of Treatment Future Test Test Name Order Date COLONOSCOPY 05/18/2015 COLONOSCOPY 02/02/2021 Insurance Providers Payer Name Payer Address Payer Phone Subscriber Number Group Number Insured Name Patient Relationship to Insured Coverage Start Date Coverage End Date [facility] [address] [place], [place] [id number] [phone] [id number] ANGIE KENDRICK Self - patient is the insured Medical (General) History Medical History History ICD Code colonoscopy 07/31, negative for polyps, previous history of tubular adenoma, five-year followup for family history history of iron deficiency anemia Denies [place],DM,CVA,Lung disease,renal dise ase hypertension anxiety Surgical History Surgery Date(Month/Year) tubal ligation bladder sling surgery
== END 2025-08-11 08:33 | disposition home or self-care (01) ==
LOC: HO.US 08:32
PROVIDERS: PCP Nurse Practitioner Family; Visit Provider Obstetrics & Gynecology
DX: R93.89 Abnormal findings on diagnostic imaging of other specified body structures (principal)
CPT/HCPCS: 76830; 76856

== ENCOUNTER 2025-08-26 09:44 | Outpatient (AMB) | payer MEDICARE, SELFPAY ==
--- NOTE | 2025-08-26 09:54 | A.OFFVIS_ITS ---
Vital Signs 08/26/25 09:59 Height 5 ft 2 in Weight 187 lb BMI 34.2 BP 136/80 Intake Visit Reasons: Ultra sound follow up Container Packer Operator Required: No Information Interpreted: non-clinical & clinical Breeding Technician: Breeding Technician Present (Melanie FORREST) Accompanied by: Daughter Allergies Seasonal Allergies Allergy (Mild, Verified 08/26/25 10:00) Runny Nose atorvastatin (ATORVASTATIN) Adverse Reaction (Intermediate, Verified 08/26/25 10:00) myalgias / cough Post menopausal: Yes HPI Comments Details: Presenting for ultrasound follow-up done on 08/11/2025 which showed the f ollowing: Anteverted mildly atrophic uterus, measures 6.8 x 3.6 x 5.1 cm, mildly heterogeneous myometrium, no apparent mass is seen. Abnormal endometrium, diffusely thickened with solid and cystic components, 2.2 cm in thickness, the submitted Doppler images demonstrate no abnormal vascular flow of the endometrium. Minimally complex nabothian cysts with avascular thin septation at the cervix. Probable right ovary is only seen transabdominally, ovarian parenchyma details are difficult to see, measures 2.0 x 1.1 x 1.4 cm, no obvious lesion or abnormal vascular flow. Left ovary is not seen, left adnexa is mostly obscured by bowel gas. No free fluid. [facility] Medical History COVID-19 vaccine administered History of urinary urgency Depression Asthma Hx of cardiac murmur Elevated cholesterol HTN (hypertension) Surgical History Hx of dilation and curettage Hx of tubal ligation History of pubovaginal sling H/O colonoscopy Social History Household Members: Family Housing: House Are you a primary care transport nurse to a significant other at home: No Do you presently have visiting nurse or other home services: No Patient Tobacco Use Status: Never used Tobacco e-Cigarette/Vaping Use: Never Used Second Hand Smoke Exposure: Yes service: No Current occupational status: retired Cognitive needs: No Hearing needs: No Vision needs: No Review of Systems Const All systems reviewed & are unremarkable except as noted in HPI and below Reports as per HPI and Reports no additional complaints GI Reports no additional complaints Reports no additional complaints Physical Exam Vital Signs: Last Vital Signs BP 136/80 08/26/25 09:59 BMI result Body Mass Index 34.2 Office Procedures Endometrial Biopsy Details: The patient was counseled regarding the indication and benefits of endometrial sampling to rule out endometrial pathology including not limited to endometrial hyperplasia or endometrial cancer and others; The alternatives (Either do nothing vs. hysteroscopy D&C) & the risks were discussed with the patient including but not limited: pain, uterine perforation, bleeding, infection, possible injury to bladder, bowel, ureter, possible need for blood transfusion with all its possible risks. The patient verbalized understanding all questions answered and signed consent. The patient was placed into the dorsal lithotomy position; a speculum was inserted in the vagina. Using aseptic technique for the procedure, the cervix was cleansed with Betadine. The anterior lip of the cervix was grasped with a single tooth tenaculum. The uterus was sounded to 7 cm with a 4 mm Pipelle was used. Tissues samples were obtained and placed in formalin, in a patient labeled container and sent to the pathology department. At the end of the procedure, there was minimal bleeding noted The patient tolerated the procedure well and was discharged in good condition with the following instructions: Nothing in the vagina until the bleeding stops. No sex until the bleeding stops, to call if any of the following occurs: fever (>100.4), flu-like symptoms, abdominal pain, heavy bleeding, four smelling vaginal discharge. The patient was instructed to schedule a Follow up appointment in 2 weeks to di scuss pathology results of the biopsy and treatment options. This note was generated with a voice recognition program. Some errors may have been overlooked during the review of this note. Sometimes these errors may affect the content or meaning of a given sentence. 51591-Voevohjithd Biopsy Assessment & Plan Assessment & Plan (1) Abnormal ultrasound of endometrium: Code(s): R93.5 - Abnormal findings on diagnostic imaging of other abdominal regions, including retroperitoneum Category: Medical Plan: Discussed with the patient the pelvic ultrasound findings, the endometrial stripe thickenss and abnormal. The negative predictive value, positive predictive value, Sensitivity, specificity of using ultrasound measurement of endometrial stripe to detecting endometrial pathology including hyperplasia , polyp or cancer were discussed with the patient. Recommended to the patient that the next step is an endometrial sampling via hysteroscopy D&C possible polypectomy versus endometrial biopsy to r/o endometrial pathology including hyperplasia or cancer. All the pros and cons risks and benefits of each approach were discussed with the patient, endometrial biopsy being less invasive, office procedure with less sensitivity and inability diagnose a polyp and removal versus hysteroscopy done under anesthesia more invasive more sensitive to endometrial cancer and possibility of diagnosing and endometrial polyp with the possibility of polypectomy. All questions were answered pt verbalized understanding and decided to proceed with endometrial biopsy Orders: Orders AMB Endometrial Biopsy Today R93.5 - Abnormal findings on diagnostic imaging of other abdominal regions, including retroperitoneum Coding Level of Care Code Est Pt Level 3 (44399) Procedure Only Diagnoses Abnormal ultrasound of endometrium R93.5 CPT Codes Endometrial Biopsy - CPT: 64102-Dyfzpmtzeey Biopsy ([id number])
[2025-08-26 09:59] VITALS: BP 136/80; BMI 34.2
== END 2025-08-26 10:33 | disposition home or self-care (01) ==
LOC: HO.HWS 09:44
PROVIDERS: PCP Nurse Practitioner Family; Visit Provider Obstetrics & Gynecology
DX: R93.5 Abnormal findings on diagnostic imaging of other abdominal regions, including retroperitoneum (principal)
CPT/HCPCS: 58100; 99213

== ENCOUNTER 2025-08-26 09:44 | Outpatient (REF) | payer MEDICARE, SELFPAY | END 2025-08-26 09:45 | disposition home or self-care (01) | LOC: HO.LNP 09:44 | PROVIDERS: PCP Nurse Practitioner Family; Visit Provider Obstetrics & Gynecology | DX: R93.5 Abnormal findings on diagnostic imaging of other abdominal regions, including retroperitoneum (principal); Z98.51 Tubal ligation status | CPT/HCPCS: 88305 ==